=== PATIENT | female | born 1975 | race Caucasian/White ===

== ENCOUNTER 2017-02-24 20:40 | Emergency (ER) | payer MEDICARE, MEDICAID ==
[2017-02-24] MEDS ORDERED: 0.9 % SODIUM CHLORIDE 1,000 ML BAG IV ONE (20:45)
--- NOTE | 2017-02-24 20:50 | Emergency Department Record ---
History of Present Illness - General Chief Complaint: Abdominal Pain Stated Complaint: ABD PAIN Source: Patient Mode of Arrival: Ambulatory Limitations: No limitations - History of Present Illness Initial Comments: 41 yo female presents with abdominal pain. She has a extensive history of abdominal surgery with over 17 surgeries after a remote history of ruptured appendicitis. She has a history of colostomy. She does have pain on a daily basis. She developed sharp severe pain about 2-3 hours ago. She had some nausea and vomiting earlier. She states the output from her ostomy is normal currently. She was seen at [facility] last week. She has a situation that is very difficult due to the numerous surgeries, hernias, morbid obesity MD Complaint: Abdominal pain -: Hour(s) Location: LLQ Radiation: LLQ Migration to: LLQ Severity: Severe Quality: Aching, Sharp Consistency: Constant Improves With: Nothing Associated Symptoms: Anorexia - Related Data Home Medications Medication Instructions Recorded Confirmed Last Taken Alprazolam [Xanax] 0.5 mg PO BID PRN 07/28/16 10/19/16 1 Day Ago Cyclobenzaprine HCl [Flexeril] 10 mg PO QHS 07/28/16 10/19/16 1 Day Ago Docusate Sodium [Colace] 100 mg PO DAILY 07/28/16 10/19/16 1 Day Ago Fentanyl [Duragesic] 100 mcg TD Q72H 07/28/16 10/19/16 07/26/16 Hydrocodone/Acetaminophen [[place] 2 tab PO Q6H 07/28/16 10/19/16 1 Day Ago 7.5mg/325mg] Insulin Detemir [Levemir] 100 unit SQ BID 07/28/16 10/19/16 1 Day Ago Insulin Lispro [Humalog] 1 unit SQ ASDIR 07/28/16 10/19/16 1 Day Ago Trazodone HCl 300 mg PO QHS 07/28/16 10/19/16 1 Day Ago Hydromorphone HCl [Dilaudid] 1 tab PO Q6HR 07/29/16 10/19/16 07/27/16 Lisinopril 20 mg PO DAILY 07/29/16 10/19/16 07/27/16 Metoclopramide HCl [Reglan] 10 mg PO QID 07/29/16 10/19/16 07/27/16 Allergies Allergy/AdvReac Type Severity Reaction Status Date / Time ketorolac tromethamine Allergy VOMITING Verified 07/28/16 16:24 [From Toradol] tramadol Allergy VOMITING Verified 07/28/16 16:24 oral conrast Allergy DIFFICULTY Uncoded 07/28/16 16:24 BREATHING Review of Systems Constitutional: Denies: Chills, Fever, Malaise, Weakness Eyes: Denies: Eye discharge, Eye pain, Photophobia, Vision change ENT: Denies: Congestion, Throat pain Respiratory: Denies: Cough, Dyspnea, Hemoptysis, Stridor, Wheezes Cardiovascular: Denies: Chest pain, Palpitations, Syncope Endocrine: Denies: Fatigue Gastrointestinal: Reports: Abdominal pain, Nausea, Vomiting Genitourinary: Denies: Dysuria, Urgency Musculoskeletal: Denies: Arthralgia, Back pain, Joint swelling, Myalgia Skin: Denies: Bruising, Change in color Neurological: Denies: Confusion, Headache Psychiatric: Denies: Anxiety Hematological/Lymphatic: Denies: Blood Clots, Easy bleeding, Easy bruising, Swollen glands Past Medical History - SOCIAL HISTORY Smoking Status: Former smoker Drug Use: None - RESPIRATORY Hx Respiratory Disorders: No Hx Sleep Apnea: Yes Hx of CPAP: Yes Comment:: CPAP here - CARDIOVASCULAR Hx Cardio Disorders: No Hx Hypertension: Yes - NEURO Hx Neuro Disorders: No - GI Hx Abdominal Pain: Yes Hx Irritable Bowel: Yes Comment:: many surgeries related to septic appy - Hx Genitourinary Disorders: No - ENDOCRINE Hx Endocrine Disorders: Yes Hx Diabetes: Yes Hx Thyroid Disease: No - MUSCULOSKELETAL Hx Musculoskeletal Disorders: No - PSYCH Hx Psych Problems: No - HEMATOLOGY/ONCOLOGY Hx Hematology/Oncology Disorders: No Hx Cancer: Yes (uterine) Hx Chemotherapy: No Hx Radiation Therapy: No Physical Exam - General General Appearance: Alert, Oriented x3, Cooperative, No acute distress Limitations: No limitations - Head Head exam: Atraumatic, Normal inspection - Eye Eye exam: Normal appearance, PERRL. negative: Conjunctival injection, Periorbital swelling - ENT ENT exam: Normal exam, Mucous membranes moist Ear exam: Normal external inspection Nasal Exam: Normal inspection Mouth exam: Normal external inspection Teeth exam: Normal inspection Throat exam: Normal inspection - Neck Neck exam: Normal inspection, Full ROM. negative: Tenderness - Respiratory Respiratory exam: Normal lung sounds bilaterally. negative: Respiratory distress - Cardiovascular Cardiovascular Exam: Regular rate, Normal rhythm, Normal heart sounds - GI/Abdominal GI/Abdominal exam: Distended (morbidly obese abdomen, grossly deformed by chronic hernias and ostomy, tender around the ostomy area mildly firm ), Guarding, Tenderness - Rectal Rectal exam: Deferred - exam: Deferred - Extremities Extremities exam: Normal inspection, Full ROM, Normal capillary refill. negative: Tenderness - Back Back exam: Reports: Normal inspection, Full ROM. Denies: Muscle spasm, Rash noted, Tenderness - Neurological Neurological exam: Alert, Normal gait, Oriented X3 - Psychiatric Psychiatric exam: Normal affect, Normal mood - Skin Skin exam: Dry, Intact, Normal color, Warm Course - Reevaluation(s) Reevaluation #1: EMR reviewed. Prior CT scans demonstrate SBO 02/24/17 20:48 Reevaluation #2: The labs were reviewed Lacitic acid is 3.2 glucose 447 02/24/17 21:35 Reevaluation #3: [place] [facility] [facility] evaluation given her higher risk and elevated lactic acid 02/24/17 21:40 02/24/17 23:05 Medical Decision Making - Lab Data Result diagrams: 02/24/17 20:54 02/24/17 20:54 Disposition Disposition: Transfer Clinical Impression: Elevated lactic acid level Abdominal pain Qualifiers: Abdominal location: unspecified location Qualified Code(s): R10.9 - Unspecified abdominal pain Disposition: Acute Care Hospital [place] [facility] For Transfer: Abdominal pain, SBO Accepting Physician: Devan Time Discussed w/Accepting Physician: 21:44 Condition: (2) Stable Forms: Patient Portal Access Time of Disposition: 21:44
[2017-02-24 21:01] LABS: BASO % 0.3 % (0-6); EOS % 3.4 % (0-6); GRAN % 61.1 % (47-80); HEMOGLOBIN 12.6 gm/dl (11.6-16.0); LYMPH % 29.5 % (16-45); MEAN CELL VOLUME 79.5 fl (81-97); MEAN CORPUSCULAR HGB CONC 31.5 g/dl (32-36); MEAN PLATELET VOLUME 10.6 fl (7.4-10.4); MONO % 5.7 % (0-9); PLATELET COUNT 298 K/uL (130-400); RED BLOOD COUNT 5.03 M/uL (3.80-5.40); RED CELL DISTRIBUTION WIDTH 15.5 % (11.5-14.5)
[2017-02-24] MEDS ORDERED: HYDROMORPHONE HCL 1 MG/ML CPJ IVP ONE ×2 (21:05→21:34)
[2017-02-24 21:11] LABS: INR 0.88; LACTIC ACID 3.2 mmol/L (0.7-2.1); PARTIAL THROMBOPLASTIN TIME 24.3 SECONDS (24.5-39.1)
[2017-02-24 21:13] LABS: ALB/GLOB RATIO 1.2 (1.1-1.8); ALBUMIN 3.7 gm/dL (3.5-5.0); BLOOD UREA NITROGEN 12 mg/dL (7-17); CREATININE 0.6 mg/dL (0.52-1.04); EST GLOMERULAR FILTRATION RATE > 60 ml/min; GLUCOSE,RANDOM 447 mg/dL (70-110); LIPASE 115 U/L (23-300); TOTAL PROTEIN 6.9 gm/dL (6.3-8.2)
[2017-02-24 21:14] LABS: ALKALINE PHOSPHATASE 132 U/L (38-126); ALT/SGPT 29 U/L (9-52); AST/SGOT 23 U/L (14-36)
[2017-02-24 21:14] LABS: URINE APPEARANCE CLEAR; URINE BILIRUBIN NEGATIVE (NEGATIVE); URINE BLOOD NEGATIVE (NEGATIVE); URINE COLOR YELLOW; URINE GLUCOSE (UA) >=1000 mg/dL (NEGATIVE); URINE KETONE NEGATIVE (NEGATIVE); URINE LEUKOCYTE ESTERASE NEGATIVE (NEGATIVE); URINE NITRITE NEGATIVE (NEGATIVE); URINE PROTEIN NEGATIVE (NEGATIVE); URINE UROBILINOGEN 0.2 E.U./dL (0.20 - 1.00)
[2017-02-24] MEDS ORDERED: HUMULIN R 100 UNIT/ML VIAL SQ ONE (22:08)
== END 2017-02-24 22:24 | disposition short-term general hospital (02) ==
LOC: ER 20:40
DX: R74.0 Nonspecific elevation of levels of transaminase and lactic acid dehydrogenase [LDH] (principal); R10.32 Left lower quadrant pain; R11.2 Nausea with vomiting, unspecified; E11.9 Type 2 diabetes mellitus without complications; Z79.4 Long term (current) use of insulin; I10 Essential (primary) hypertension
CPT/HCPCS: 99285 ×2; 96374; 96372; 96361; 83605; 83690; 85025; 85730; 85610; 80053; 81003; J1170; J7030

== ENCOUNTER 2017-04-14 21:20 | Emergency (ER) | payer MEDICARE, MEDICAID ==
[2017-04-14] MEDS ORDERED: MORPHINE SULFATE 5 MG/ML PFS IVP ONE (22:08)
[2017-04-14] MEDS ORDERED: ONDANSETRON HCL IV 4 MG/2 ML VIAL IVP ONE (22:08)
[2017-04-14] MEDS ORDERED: METHYLPREDNISOLONE PF 125MG/VIAL IVP ONE (22:09)
[2017-04-14] MEDS ORDERED: DIPHENHYDRAMINE HCL IV 50 MG/ML VIAL IVP ONE (22:09)
[2017-04-14 22:12] LABS: BASO % 0.2 % (0-6); EOS % 1.4 % (0-6); GRAN % 74.9 % (47-80); HEMATOCRIT 40.5 % (35.0-47.0); LYMPH % 18.7 % (16-45); MEAN CORPUSCULAR HEMOGLOBIN 25.7 pg (27-33); MEAN CORPUSCULAR HGB CONC 32.1 g/dl (32-36); MEAN PLATELET VOLUME 10.6 fl (7.4-10.4); MONO % 4.8 % (0-9); PLATELET COUNT 362 K/uL (130-400); RED BLOOD COUNT 5.06 M/uL (3.80-5.40); RED CELL DISTRIBUTION WIDTH 14.8 % (11.5-14.5); WHITE BLOOD COUNT W/O DIFF 9.3 K/uL (4.2-12.2)
--- NOTE | 2017-04-14 22:14 | Emergency Department Record ---
History of Present Illness - General Chief Complaint: Abdominal Pain Stated Complaint: R ABD PAIN Time Seen by Provider: 04/14/17 22:02 Source: Patient Mode of Arrival: Ambulatory Limitations: No limitations - History of Present Illness Initial Comments: 42 yo female presents to ED with a CC of RLQ pain symptoms toat began 2-3 hours prior to arrival. Patient reports a significant history for perforated appendicitis s/p bowel resection and ostomy, s/p moo and hysterectomy, and previous history of numerous bowel obstructions and hernia repairs. Patient denies fevers, chills, nausea, or vomiting symptoms. Patient reports that she has had output from her ostomy tonight following the onset of her pain symptoms. MD Complaint: Abdominal pain Onset/Timin -: Days(s) Location: RLQ Migration to: No migration Severity: Severe Consistency: Constant Improves With: Nothing Worsens With: Movement Treatments Prior to Arrival: Prescription analgesics - Related Data Patient : No Home Medications Medication Instructions Recorded Confirmed Last Taken Alprazolam [Xanax] 0.5 mg PO BID PRN 07/28/16 04/14/17 04/14/17 Cyclobenzaprine HCl [Flexeril] 10 mg PO QHS 07/28/16 04/14/17 04/13/17 Docusate Sodium [Colace] 100 mg PO DAILY 07/28/16 04/14/17 04/14/17 Hydrocodone/Acetaminophen [[place] 2 tab PO Q6H 07/28/16 04/14/17 04/14/17 7.5mg/325mg] Insulin Detemir [Levemir] 100 unit SQ BID 07/28/16 04/14/17 04/14/17 Insulin Lispro [Humalog] 1 unit SQ ASDIR 07/28/16 04/14/17 04/14/17 Trazodone HCl 300 mg PO QHS 07/28/16 04/14/17 04/13/17 Hydromorphone HCl [Dilaudid] 1 tab PO Q6HR 07/29/16 04/14/17 04/14/17 Lisinopril 20 mg PO DAILY 07/29/16 04/14/17 04/14/17 Metoclopramide HCl [Reglan] 10 mg PO QID 09/26/16 06/12/17 06/12/17 Allergies Allergy/AdvReac Type Severity Reaction Status Date / Time Iodinated Contrast- Oral and Allergy DIFFICULTY Verified 04/14/17 22:28 IV Dye BREATHING ketorolac tromethamine Allergy VOMITING Verified 07/28/16 16:24 [From Toradol] tramadol Allergy VOMITING Verified 07/28/16 16:24 oral conrast Allergy DIFFICULTY Uncoded 07/28/16 16:24 BREATHING Travel Screening - Travel/Exposure Within Last 30 Days Have you traveled within the last 30 days?: No - Travel Symptoms Symptom Screening: None Review of Systems Constitutional: Denies: Chills, Fever, Malaise, Night sweats Eyes: Denies: Eye discharge, Eye pain ENT: Denies: Congestion, Ear pain, Epistaxis Respiratory: Denies: Cough Cardiovascular: Denies: Chest pain, Dyspnea on exertion Endocrine: Denies: Fatigue, Heat or cold intolerance Gastrointestinal: Reports: Abdominal pain. Denies: Constipation, Nausea, Vomiting Genitourinary: Denies: Incontinence, Retention Musculoskeletal: Denies: Arthralgia, Back pain Skin: Denies: Bruising, Change in color Neurological: Denies: Abnormal gait, Confusion, Headache, Seizure Psychiatric: Denies: Anxiety Hematological/Lymphatic: Denies: Anemia, Blood Clots Past Medical History - SOCIAL HISTORY Smoking Status: Former smoker Alcohol Use: None Drug Use: None - RESPIRATORY Hx Respiratory Disorders: No Hx Sleep Apnea: Yes Hx of CPAP: Yes Comment:: CPAP here - CARDIOVASCULAR Hx Cardio Disorders: No Hx Hypertension: Yes - NEURO Hx Neuro Disorders: No - GI Hx GI Disorders: Yes Hx Abdominal Pain: Yes Hx Irritable Bowel: Yes Comment:: many surgeries related to septic appy - Hx Genitourinary Disorders: No - ENDOCRINE Hx Endocrine Disorders: Yes Hx Diabetes: Yes Hx Thyroid Disease: No - MUSCULOSKELETAL Hx Musculoskeletal Disorders: No - PSYCH Hx Psych Problems: No - HEMATOLOGY/ONCOLOGY Hx Hematology/Oncology Disorders: No Hx Cancer: Yes (uterine) Hx Chemotherapy: No Hx Radiation Therapy: No Family Medical History Any Significant Family History?: No Family Hx Comment (NOT TO BE USED IN PLACE OF ITEMS BELOW): denies Physical Exam - General General Appearance: Alert, Oriented x3, Cooperative, Moderate distress Limitations: No limitations - Head Head exam: Atraumatic, Normocephalic, Normal inspection Head exam detail: negative: Abrasion, Contusion, Junior's sign, General tenderness, Hematoma, Laceration - Eye Eye exam: Normal appearance. negative: Conjunctival injection, Periorbital swelling, Periorbital tenderness, Scleral icterus - ENT Ear exam: negative: Auricular hematoma, Auricular trauma Nasal Exam: negative: Active bleeding, Discharge, Dried blood, Foreign body Mouth exam: negative: Drooling, Laceration, Muffled voice, Tongue elevation - Neck Neck exam: Normal inspection. negative: Meningismus, Tenderness - Respiratory Respiratory exam: Normal lung sounds bilaterally. negative: Rales, Respiratory distress, Rhonchi, Stridor - Cardiovascular Cardiovascular Exam: Regular rate, Normal rhythm, Normal heart sounds - GI/Abdominal GI/Abdominal exam: Soft, Tenderness, Other (TTP to the right mid-abdomen, no rebound, guarding is present, well healed midline scar is present, ostomy LLQ is present with mild output.). negative: Rebound, Rigid - Rectal Rectal exam: Deferred - exam: Deferred - Extremities Extremities exam: Normal inspection. negative: Calf tenderness, Pedal edema, Tenderness - Back Back exam: Denies: CVA tenderness (R), CVA tenderness (L) - Neurological Neurological exam: Alert, Normal gait, Oriented X3 - Psychiatric Psychiatric exam: Normal affect, Normal mood - Skin Skin exam: Normal color. negative: Abrasion Type of lesion: negative: abrasion Course Vital Signs 04/14/17 21:29 Temperature 98.6 F Pulse Rate [ 92 H Pulse Ox Probe] Respiratory 18 Rate Blood Pressure 189/95 [Left Arm] Pulse Ox 96 - Reevaluation(s) Reevaluation #1: 04/14/17 22:13 Patient seen and examined, laboratory studies and CT imaging ordered for further abdominal evaluation. Reevaluation #2: 04/14/17 22:39 Labs reviewed, Glucose is 385, labs are otherwise grossly unremarkable for an acute process. Reevaluation #3: 04/15/17 00:00 CT Abdomen and Pelvis: Ventral wall hernia opening measuring 5.8 cm with bowel extending into the lower abdominal pannus extending below the [id number]. No obstruction. Hepatosplenomegaly Nonobstructive renal calculi Hypoattenuating spenic lesion. Reevaluation #4: 04/15/17 00:05 patient was updated on all results, reports that she still has ongoing pain symptoms. Will discuss transfer with Dr. Rodriguez for ongoing pain symptoms. Reevaluation #5: 04/15/17 00:22 Case was discussed with both Dr. Gardiner and Dr. Rodriguez, Dr. Gardiner will accept the patient for transfer and observation. Patient has been updated on the plan for transfer and admission as observation stay. Patient verbalizes understanding of the current plan of care. Medical Decision Making - Lab Data Result diagrams: 04/14/17 21:40 04/14/17 21:40 Disposition Disposition: Transfer Clinical Impression: Abdominal pain Qualifiers: Abdominal location: right lower quadrant Qualified Code(s): R10.31 - Right lower quadrant pain Disposition: Acute Care Hospital Transfer Transfer To: [facility] Reason For Transfer: Surgical consultation Accepting Physician: Abdifatah Time Discussed w/Accepting Physician: 00:23 Condition: (2) Stable Forms: Patient Portal Access Time of Disposition: 00:07
[2017-04-14] MEDS ORDERED: 0.9 % SODIUM CHLORIDE 1000ML 1,000 ML IV SCH (22:15)
[2017-04-14 22:23] LABS: ALB/GLOB RATIO 0.9 (1.1-1.8); ALKALINE PHOSPHATASE 125 U/L (38-126); ALT/SGPT 22 U/L (9-52); ANION GAP 10.4 (7-16); AST/SGOT 19 U/L (14-36); BILIRUBIN,TOTAL 0.43 mg/dL (0.2-1.3); BLOOD UREA NITROGEN 10 mg/dL (7-17); CARBON DIOXIDE 24.6 mmol/L (22-30); CREATININE 0.5 mg/dL (0.52-1.04); EST GLOMERULAR FILTRATION RATE > 60 ml/min; GLUCOSE,RANDOM 385 mg/dL (70-110); LIPASE 81 U/L (23-300); TOTAL PROTEIN 8.3 gm/dL (6.3-8.2)
[2017-04-14 23:12] LABS: URINE APPEARANCE CLEAR; URINE BILIRUBIN NEGATIVE (NEGATIVE); URINE BLOOD NEGATIVE (NEGATIVE); URINE COLOR YELLOW; URINE KETONE NEGATIVE (NEGATIVE); URINE LEUKOCYTE ESTERASE NEGATIVE (NEGATIVE); URINE NITRITE NEGATIVE (NEGATIVE); URINE UROBILINOGEN 0.2 E.U./dL (0.20 - 1.00)
[2017-04-14 23:13] LABS: URINE GLUCOSE (UA) >=1000 mg/dL (NEGATIVE)
[2017-04-14] MEDS ORDERED: HYDROMORPHONE HCL 1 MG/ML CPJ IVP ONE (23:33)
[2017-04-15] MEDS ORDERED: HYDROMORPHONE HCL 1 MG/ML CPJ IVP ONE ×2 (00:59→03:38)
--- NOTE | 2017-04-16 08:32 | CT SCAN REPORT ---
EXAM: ABDOMEN AND PELVIS CT WITH IV CONTRAST HISTORY: ACUTE RIGHT LOWER QUADRANT ABDOMINAL PAIN. TECHNIQUE: Contiguous axial images from the lung bases to the symphysis pubis were obtained after the uneventful intravenous administration of 100 ml of Omnipaque 300. Comparison: Abdomen and pelvis CT 07/28/16. FINDINGS: The lung bases are clear. Decreased attenuation throughout the liver consistent with fatty infiltration. There is a lobulated hypodense focus in the medial aspect of the spleen measuring 3.4 cm, unchanged from the previous study from 07/28/16. Nonobstructing 2 mm calculus mid left kidney. Normal right kidney. The adrenals and pancreas are unremarkable. The gallbladder is absent. There is a ventral abdominal wall hernia containing a loop of colon extending into pannus which extends off the field of view. There may be a separate spigelian hernia on the left containing bowel although this is not imaged. Abdominal wall laxity diffusely. Visualized loops of small and large bowel are of normal caliber. No obvious bowel wall thickening. Small to moderate fecal material throughout the colon. No free intraperitoneal fluid or adenopathy. There is a unilocular cyst in the left adnexa measuring 5.6 cm, unchanged. No free intraperitoneal fluid or adenopathy. No lytic or blastic lesion. IMPRESSION: 1. LAXITY OF THE VENTRAL ABDOMINAL WALL WITH VENTRAL ABDOMINAL WALL HERNIA CONTAINING A LOOP OF COLON. ALSO SPIGELIAN HERNIA ON THE LEFT CONTAINING BOWEL WHICH EXTENDS OUTSIDE THE FIELD OF VIEW. NO INTESTINAL OBSTRUCTION. 2. FATTY LIVER. 3. STABLE LOBULATED HYPODENSITY IN THE SPLEEN LIKELY DUE TO BENIGN HEMANGIOMA. 4. NONOBSTRUCTING LEFT RENAL CALCULUS. 5. PERSISTENT 5.6 CM CYST IN THE LEFT OVARY SIMILAR TO THE PRIOR STUDY. RESECTION SHOULD BE CONSIDERED GIVEN THE SIZE OF THE LESION INCREASING THE RISK OF MALIGNANCY WELL OVARIAN TORSION. 6. FATTY LIVER. JOB NUMBER: [id number] [facility]
== END 2017-04-15 03:55 | disposition short-term general hospital (02) ==
LOC: ER 21:20
DX: R10.31 Right lower quadrant pain (principal); K43.9 Ventral hernia without obstruction or gangrene
CPT/HCPCS: 74177; 80053; 81003; 83690; 85025; 96374; 96375; 96376; 99285; J1170; J1200; J2405; J2930; J7030

== ENCOUNTER 2017-05-11 03:19 | Emergency (ER) | payer MEDICARE, MEDICAID ==
[2017-05-11] MEDS: 0.9 % SODIUM CHLORIDE 1,000 ML BAG IV ONE (03:54)
[2017-05-11] MEDS: HYDROMORPHONE HCL 1 MG/ML CPJ IVP ONE ×2 (03:54→05:39)
[2017-05-11] MEDS: ONDANSETRON HCL IV 4 MG/2 ML VIAL IV ONE (03:54)
[2017-05-11 03:57] LABS: BASO % 0.4 % (0-6); EOS % 3.6 % (0-6); GRAN % 61.9 % (47-80); HEMATOCRIT 39.1 % (35.0-47.0); LYMPH % 26.9 % (16-45); MEAN CELL VOLUME 80.6 fl (81-97); MEAN CORPUSCULAR HEMOGLOBIN 26.8 pg (27-33); MEAN CORPUSCULAR HGB CONC 33.2 g/dl (32-36); MEAN PLATELET VOLUME 10.5 fl (7.4-10.4); MONO % 7.2 % (0-9); PLATELET COUNT 347 K/uL (130-400); RED BLOOD COUNT 4.85 M/uL (3.80-5.40); RED CELL DISTRIBUTION WIDTH 14.8 % (11.5-14.5); WHITE BLOOD COUNT W/O DIFF 8.2 K/uL (4.2-12.2)
[2017-05-11 04:06] LABS: ALBUMIN 3.9 gm/dL (3.5-5.0); ANION GAP 10.1 (7-16); BLOOD UREA NITROGEN 10 mg/dL (7-17); CARBON DIOXIDE 27.9 mmol/L (22-30); CREATININE 0.5 mg/dL (0.52-1.04); EST GLOMERULAR FILTRATION RATE > 60 ml/min; GLUCOSE,RANDOM 281 mg/dL (70-110); TOTAL PROTEIN 7.5 gm/dL (6.3-8.2)
[2017-05-11 04:07] LABS: ALKALINE PHOSPHATASE 134 U/L (38-126); ALT/SGPT 27 U/L (9-52); AST/SGOT 24 U/L (14-36); BILIRUBIN,TOTAL 0.75 mg/dL (0.2-1.3); LIPASE 99 U/L (23-300)
--- NOTE | 2017-05-11 04:16 | Emergency Department Record ---
History of Present Illness - General Chief Complaint: Abdominal Pain Stated Complaint: ABD PAIN Time Seen by Provider: 05/11/17 03:43 Source: Patient Mode of Arrival: Ambulatory Limitations: No limitations - History of Present Illness Initial Comments: pt here for abd pain and decreased outbut from colostomy. pt has had more then 15 abd surgeries since a perforated appendix many years ago. she now goes to [facility]. she has multiple sbo. she has vomited twice today. MD Complaint: Abdominal pain Onset/Timin -: Hour(s) Location: LLQ Radiation: None Migration to: No migration Severity: Moderate Quality: Burning Consistency: Constant Improves With: Nothing Worsens With: Nothing Associated Symptoms: Denies other symptoms - Related Data LMP (females 10-50): other Patient : No Home Medications Medication Instructions Recorded Confirmed Last Taken Alprazolam [Xanax] 0.5 mg PO BID PRN 07/28/16 05/11/17 04/14/17 Cyclobenzaprine HCl [Flexeril] 10 mg PO QHS 07/28/16 05/11/17 04/13/17 Docusate Sodium [Colace] 100 mg PO DAILY 07/28/16 05/11/17 04/14/17 Hydrocodone/Acetaminophen [[place] 2 tab PO Q6H 07/28/16 05/11/17 04/14/17 7.5mg/325mg] Insulin Detemir [Levemir] 100 unit SQ BID 07/28/16 05/11/17 04/14/17 Insulin Lispro [Humalog] 1 unit SQ ASDIR 07/28/16 05/11/17 04/14/17 Trazodone HCl 300 mg PO QHS 07/28/16 05/11/17 04/13/17 Hydromorphone HCl [Dilaudid] 1 tab PO Q6HR 07/29/16 05/11/17 04/14/17 Lisinopril 20 mg PO DAILY 07/29/16 05/11/17 04/14/17 Metoclopramide HCl [Reglan] 10 mg PO QID 07/29/16 05/11/17 04/14/17 Allergies Allergy/AdvReac Type Severity Reaction Status Date / Time Iodinated Contrast- Oral and Allergy DIFFICULTY Verified 04/14/17 22:28 IV Dye BREATHING ketorolac tromethamine Allergy VOMITING Verified 07/28/16 16:24 [From Toradol] tramadol Allergy VOMITING Verified 07/28/16 16:24 oral conrast Allergy DIFFICULTY Uncoded 07/28/16 16:24 BREATHING Travel Screening - Travel/Exposure Within Last 30 Days Have you traveled within the last 30 days?: No - Travel/Exposure Within Last Year Have you traveled outside the [place] in the last year?: No - Additonal Travel Details Have you been exposed to anyone with a communicable illness?: No - Travel Symptoms Symptom Screening: None Review of Systems Reviewed: No additional complaints except as noted below Constitutional: Reports: As per HPI. Denies: Chills, Fever, Malaise, Night sweats, Weakness, Weight change Eyes: Reports: As per HPI. Denies: Eye discharge, Eye pain, Photophobia, Vision change ENT: Reports: As per HPI. Denies: Congestion, Dental pain, Ear pain, Epistaxis , Hearing loss, Throat pain Respiratory: Reports: As per HPI. Denies: Cough, Dyspnea, Hemoptysis, Stridor, Wheezes Cardiovascular: Reports: As per HPI. Denies: Arrhythmia, Chest pain, Dyspnea on exertion, Edema, Murmurs, Orthopnea, Palpitations, Paroxysmal nocturnal dyspnea, Rheumatic Fever, Syncope Endocrine: Reports: As per HPI. Denies: Fatigue, Heat or cold intolerance, Polydipsia, Polyuria Gastrointestinal: Reports: As per HPI. Denies: Abdominal pain, Constipation, Diarrhea, Hematemesis, Hematochezia, Melena, Nausea, Vomiting Genitourinary: Reports: As per HPI. Denies: Abnormal menses, Discharge, Dyspareunia, Dysuria, Frequency, Hematuria, Incontinence, Retention, Urgency Musculoskeletal: Reports: As per HPI. Denies: Arthralgia, Back pain, Gout, Joint swelling, Myalgia, Neck pain Skin: Reports: As per HPI. Denies: Bruising, Change in color, Change in hair/ nails, Lesions, Pruritus, Rash Neurological: Reports: As per HPI. Denies: Abnormal gait, Confusion, Headache, Numbness, Paresthesias, Seizure, Tingling, Tremors, Vertigo, Weakness Psychiatric: Reports: As per HPI. Denies: Anxiety, Auditory hallucinations, Depression, Homicidal thoughts, Suicidal thoughts, Visual hallucinations Hematological/Lymphatic: Reports: As per HPI. Denies: Anemia, Blood Clots, Easy bleeding, Easy bruising, Swollen glands Past Medical History - SOCIAL HISTORY Smoking Status: Former smoker Alcohol Use: None Drug Use: None - RESPIRATORY Hx Respiratory Disorders: No Hx Sleep Apnea: Yes Hx of CPAP: Yes Comment:: CPAP here - CARDIOVASCULAR Hx Cardio Disorders: No Hx Hypertension: Yes - NEURO Hx Neuro Disorders: No - GI Hx GI Disorders: Yes Hx Abdominal Pain: Yes Hx Irritable Bowel: Yes Comment:: many surgeries related to septic appy - Hx Genitourinary Disorders: No - ENDOCRINE Hx Endocrine Disorders: Yes Hx Diabetes: Yes Hx Thyroid Disease: No - MUSCULOSKELETAL Hx Musculoskeletal Disorders: No - PSYCH Hx Psych Problems: No - HEMATOLOGY/ONCOLOGY Hx Hematology/Oncology Disorders: No Hx Cancer: Yes (uterine) Hx Chemotherapy: No Hx Radiation Therapy: No Family Medical History Any Significant Family History?: No Family Hx Comment (NOT TO BE USED IN PLACE OF ITEMS BELOW): denies Physical Exam - General General Appearance: Alert, Oriented x3, Cooperative, Mild distress - Head Head exam: Normal inspection - Eye Eye exam: Normal appearance, PERRL, EOMI Pupils: Normal accommodation - ENT ENT exam: Normal exam, Mucous membranes moist, Normal external ear exam, Normal orophraynx Ear exam: Normal external inspection. negative: External canal tenderness Nasal Exam: Normal inspection. negative: Discharge, Sinus tenderness Mouth exam: Normal external inspection, Tongue normal Teeth exam: Normal inspection. negative: Dental caries Throat exam: Normal inspection. negative: Tonsillar erythema, Tonsillar exudate - Neck Neck exam: Normal inspection, Full ROM. negative: Tenderness - Respiratory Respiratory exam: Normal lung sounds bilaterally. negative: Respiratory distress - Cardiovascular Cardiovascular Exam: Regular rate, Normal rhythm, Normal heart sounds - GI/Abdominal GI/Abdominal exam: Soft, Normal bowel sounds, Hernia, Tenderness, Other ( colostomy in place w small outflow, ) - Rectal Rectal exam: Deferred - exam: Deferred - Extremities Extremities exam: Normal inspection, Full ROM, Normal capillary refill. negative: Tenderness - Back Back exam: Reports: Normal inspection, Full ROM. Denies: Muscle spasm, Rash noted, Tenderness - Neurological Neurological exam: Alert, CN II-XII intact, Normal gait, Oriented X3 - Psychiatric Psychiatric exam: Normal affect, Normal mood - Skin Skin exam: Dry, Intact, Normal color, Warm Course Vital Signs 05/11/17 05/11/17 03:32 04:04 Temperature 98.6 F Pulse Rate [ 84 Pulse Ox Probe] Respiratory 20 Rate Blood Pressure 194/91 [Right Arm] Pulse Ox 97 94 L - Reevaluation(s) Reevaluation #1: 05/11/17 05:34 ct no acute chgs, no obstruction Medical Decision Making - Lab Data Result diagrams: 05/11/17 03:35 05/11/17 03:35 Lab Results 05/11/17 Range/Units 03:35 WBC 8.2 (4.2-12.2) K/uL RBC 4.85 (3.80-5.40) M/uL Hgb 13.0 (11.6-16.0) gm/dl Hct 39.1 (35.0-47.0) % MCV 80.6 L (81-97) fl MCH 26.8 L (27-33) pg MCHC 33.2 (32-36) g/dl RDW 14.8 H (11.5-14.5) % Plt Count 347 (130-400) K/uL MPV 10.5 H (7.4-10.4) fl Gran % 61.9 (47-80) % Lymphocytes % 26.9 (16-45) % Monocytes % 7.2 (0-9) % Eosinophils % 3.6 (0-6) % Basophils % 0.4 (0-6) % Disposition Disposition: Discharge Clinical Impression: Abdominal pain Qualifiers: Abdominal location: generalized Qualified Code(s): R10.84 - Generalized abdominal pain Disposition: Home, Self-Care Condition: (1) Good Instructions: Abdominal Pain (ED) Additional Instructions: follow up with family doctor and surgeon tomorrow. return sooner if worse. recheck in 12-24 hours if having abd pain Forms: Patient Portal Access Quality - Quality Measures Quality Measures: N/A - Blood Pressure Screening Blood Pressure Classification: Hypertensive Reading Systolic Measurement: 179 Diastolic Measurement: 64 Screening for High Blood Pressure: < First Hypertensive BP, F/U Documented > [ [id number]] First Hypertensive Follow-up Interventions: Follow-up with rescreen GT 1 day and LT 4 weeks.
[2017-05-11 04:44] LABS: URINE APPEARANCE CLEAR; URINE BILIRUBIN NEGATIVE (NEGATIVE); URINE BLOOD NEGATIVE (NEGATIVE); URINE COLOR YELLOW; URINE KETONE NEGATIVE (NEGATIVE); URINE LEUKOCYTE ESTERASE NEGATIVE (NEGATIVE); URINE NITRITE NEGATIVE (NEGATIVE); URINE PROTEIN NEGATIVE (NEGATIVE); URINE UROBILINOGEN 0.2 E.U./dL (0.20 - 1.00)
[2017-05-11 04:48] LABS: URINE GLUCOSE (UA) >=1000 mg/dL (NEGATIVE)
--- NOTE | 2017-05-13 06:00 | CT SCAN REPORT ---
DATE: 05/11/2017. EXAM: CT OF THE ABDOMEN AND PELVIS WITHOUT CONTRAST. HISTORY: Left lower quadrant pain. TECHNIQUE: CT of the abdomen and pelvis was performed without oral or IV contrast. This limits evaluation of bowel and solid visceral organs. COMPARISON: Prior CT from 10/19/2016. FINDINGS: Limited evaluation of the lung bases is unremarkable. Osseous structures are grossly intact. Fatty infiltrative change to the liver is suspected. Status post cholecystectomy. Stable 3.8 x 3.5 cm hypodensity within the spleen. The adrenal glands and pancreas are unremarkable. Nonobstructing 2.0 mm left renal calculus. The kidneys are otherwise unremarkable. Stable cystic mass in the left hemipelvis/left adnexal region measuring 6.8 x 5.7 cm. No gross evidence of bowel obstruction. Limited study due to patient body habitus. Portions of the abdominal wall could not be included on the examination. There is a large hernia involving the lower abdomen/pelvis with loops of bowel extending into the region. No definitive evidence for bowel obstruction. Postsurgical changes with partial bowel resection are noted. No free air or free fluid. The appendix is not well seen. Correlate with surgical history. No pericecal inflammation. IMPRESSION: 1. LIMITED DUE TO PATIENT BODY HABITUS. 2. PORTIONS OF THE ABDOMINAL WALL EXTENDED OFF OF THE FIELD OF VIEW IN THE LEFT LOWER QUADRANT. THERE IS A LARGE HERNIA WITH LOOPS OF BOWEL EXTENDING INTO THE HERNIA SAC. NO CONVINCING EVIDENCE FOR BOWEL OBSTRUCTION. 3. STABLE SPLENIC LESION. STABLE CYSTIC MASS IN THE LEFT LOWER QUADRANT. 4. NONOBSTRUCTING LEFT RENAL CALCULI. JOB NUMBER: [id number] [facility]
== END 2017-05-11 06:07 | disposition home or self-care (01) ==
LOC: ER 03:19
DX: R10.84 Generalized abdominal pain (principal); R10.32 Left lower quadrant pain; Z85.42 Personal history of malignant neoplasm of other parts of uterus; I10 Essential (primary) hypertension; Z87.891 Personal history of nicotine dependence
CPT/HCPCS: 99284 ×2; 96376; 96374; 96375; 96361; 83605; 83690; 85025; 80076; 80048; 81003; 74176; J2405; J1170; J7030

== ENCOUNTER 2017-05-11 15:27 | Emergency (ER) | payer MEDICARE, MEDICAID | END 2017-05-11 16:13 | disposition left against medical advice (07) | LOC: ER 15:27 | DX: Z53.20 Procedure and treatment not carried out because of patient's decision for unspecified reasons (principal) ==

== ENCOUNTER 2017-05-28 21:45 | Emergency (ER) | payer MEDICARE, MEDICAID ==
--- NOTE | 2017-05-28 22:12 | Emergency Department Record ---
History of Present Illness - General Chief Complaint: Fall Injury Stated Complaint: FELL Time Seen by Provider: 05/28/17 21:57 Source: Patient Mode of Arrival: Ambulatory Limitations: No limitations - History of Present Illness Initial Comments: pt became dizzy, held head and found herself on the floor. she hit her l side and it continues to be painful Onset/Timin -: Hour(s) Fall From: From height (distance) When Fall Occurred: Unsure Fall Witnessed: No Place Fall Occurred: Home Loss of Consciousness: None Prolonged Down Time?: No Symptoms Prior to Fall: Dizziness Location: Chest, Abdomen, Other Severity: Moderate Severity scale (1-10): 9 Quality: Other Associated Symptoms: Denies - Stef Coma Scale Eye Response: (4) Open spontaneously Motor Response: (6) Obeys commands Verbal Response: (5) Oriented [place] Total: 15 - Related Data Home Medications Medication Instructions Recorded Confirmed Last Taken Alprazolam [Xanax] 0.5 mg PO BID PRN 07/28/16 05/28/17 04/14/17 Cyclobenzaprine HCl [Flexeril] 10 mg PO QHS 07/28/16 05/28/17 04/13/17 Docusate Sodium [Colace] 100 mg PO DAILY 07/28/16 05/28/17 04/14/17 Hydrocodone/Acetaminophen [[place] 2 tab PO Q6H 07/28/16 05/28/17 04/14/17 7.5mg/325mg] Insulin Detemir [Levemir] 100 unit SQ BID 07/28/16 05/28/17 04/14/17 Insulin Lispro [Humalog] 1 unit SQ ASDIR 07/28/16 05/28/17 04/14/17 Trazodone HCl 300 mg PO QHS 07/28/16 05/28/17 04/13/17 Hydromorphone HCl [Dilaudid] 1 tab PO Q6HR 07/29/16 05/28/17 04/14/17 Lisinopril 20 mg PO DAILY 07/29/16 05/28/17 04/14/17 Metoclopramide HCl [Reglan] 10 mg PO QID 07/29/16 05/28/17 04/14/17 Allergies Allergy/AdvReac Type Severity Reaction Status Date / Time Iodinated Contrast- Oral and Allergy DIFFICULTY Verified 04/14/17 22:28 IV Dye BREATHING ketorolac tromethamine Allergy VOMITING Verified 07/28/16 16:24 [From Toradol] tramadol Allergy VOMITING Verified 07/28/16 16:24 oral conrast Allergy DIFFICULTY Uncoded 07/28/16 16:24 BREATHING Travel Screening - Travel/Exposure Within Last 30 Days Have you traveled within the last 30 days?: No - Travel/Exposure Within Last Year Have you traveled outside the [place] in the last year?: No - Additonal Travel Details Have you been exposed to anyone with a communicable illness?: No - Travel Symptoms Symptom Screening: None Review of Systems Reviewed: No additional complaints except as noted below Constitutional: Reports: As per HPI. Denies: Chills, Fever, Malaise, Night sweats, Weakness, Weight change Eyes: Reports: As per HPI. Denies: Eye discharge, Eye pain, Photophobia, Vision change ENT: Reports: As per HPI. Denies: Congestion, Dental pain, Ear pain, Epistaxis , Hearing loss, Throat pain Respiratory: Reports: As per HPI. Denies: Cough, Dyspnea, Hemoptysis, Stridor, Wheezes Cardiovascular: Reports: As per HPI. Denies: Arrhythmia, Chest pain, Dyspnea on exertion, Edema, Murmurs, Orthopnea, Palpitations, Paroxysmal nocturnal dyspnea, Rheumatic Fever, Syncope Endocrine: Reports: As per HPI. Denies: Fatigue, Heat or cold intolerance, Polydipsia, Polyuria Gastrointestinal: Reports: As per HPI. Denies: Abdominal pain, Constipation, Diarrhea, Hematemesis, Hematochezia, Melena, Nausea, Vomiting Genitourinary: Reports: As per HPI. Denies: Abnormal menses, Discharge, Dyspareunia, Dysuria, Frequency, Hematuria, Incontinence, Retention, Urgency Musculoskeletal: Reports: As per HPI. Denies: Arthralgia, Back pain, Gout, Joint swelling, Myalgia, Neck pain Skin: Reports: As per HPI. Denies: Bruising, Change in color, Change in hair/ nails, Lesions, Pruritus, Rash Neurological: Reports: As per HPI. Denies: Abnormal gait, Confusion, Headache, Numbness, Paresthesias, Seizure, Tingling, Tremors, Vertigo, Weakness Psychiatric: Reports: As per HPI. Denies: Anxiety, Auditory hallucinations, Depression, Homicidal thoughts, Suicidal thoughts, Visual hallucinations Hematological/Lymphatic: Reports: As per HPI. Denies: Anemia, Blood Clots, Easy bleeding, Easy bruising, Swollen glands Past Medical History - SOCIAL HISTORY Smoking Status: Former smoker Alcohol Use: None Drug Use: None - RESPIRATORY Hx Respiratory Disorders: No Hx Sleep Apnea: Yes Hx of CPAP: Yes Comment:: CPAP here - CARDIOVASCULAR Hx Cardio Disorders: No Hx Hypertension: Yes - NEURO Hx Neuro Disorders: No - GI Hx GI Disorders: Yes Hx Abdominal Pain: Yes Hx Irritable Bowel: Yes Comment:: many surgeries related to septic appy - Hx Genitourinary Disorders: No - ENDOCRINE Hx Endocrine Disorders: Yes Hx Diabetes: Yes Hx Thyroid Disease: No - MUSCULOSKELETAL Hx Musculoskeletal Disorders: No - PSYCH Hx Psych Problems: No - HEMATOLOGY/ONCOLOGY Hx Hematology/Oncology Disorders: No Hx Cancer: Yes (uterine) Hx Chemotherapy: No Hx Radiation Therapy: No Family Medical History Any Significant Family History?: No Family Hx Comment (NOT TO BE USED IN PLACE OF ITEMS BELOW): denies Physical Exam - General General Appearance: Alert, Oriented x3, Cooperative, Mild distress - Head Head exam: Normal inspection - Eye Eye exam: Normal appearance, PERRL, EOMI Pupils: Normal accommodation - ENT ENT exam: Normal exam, Mucous membranes moist, Normal external ear exam, Normal orophraynx Ear exam: Normal external inspection. negative: External canal tenderness Nasal Exam: Normal inspection. negative: Discharge, Sinus tenderness Mouth exam: Normal external inspection, Tongue normal Teeth exam: Normal inspection. negative: Dental caries Throat exam: Normal inspection. negative: Tonsillar erythema, Tonsillar exudate - Neck Neck exam: Normal inspection, Full ROM. negative: Tenderness - Respiratory Respiratory exam: Normal lung sounds bilaterally. negative: Respiratory distress - Cardiovascular Cardiovascular Exam: Regular rate, Normal rhythm, Normal heart sounds - GI/Abdominal GI/Abdominal exam: Soft, Normal bowel sounds, Tenderness - Rectal Rectal exam: Deferred - exam: Deferred - Extremities Extremities exam: Normal inspection, Full ROM, Normal capillary refill. negative: Tenderness - Back Back exam: Reports: Normal inspection, Full ROM. Denies: Muscle spasm, Rash noted, Tenderness - Neurological Neurological exam: Alert, CN II-XII intact, Normal gait, Oriented X3 - Psychiatric Psychiatric exam: Normal affect, Normal mood - Skin Skin exam: Dry, Intact, Normal color, Warm Course Vital Signs 07/26/17 21:47 Temperature 98.5 F Pulse Rate 83 Respiratory 20 Rate Blood Pressure 163/92 Pulse Ox 97 Medical Decision Making - Lab Data Result diagrams: 05/28/17 22:45 05/28/17 22:45 Disposition Disposition: Discharge Clinical Impression: Rib contusion Qualifiers: Encounter type: initial encounter Laterality: left Qualified Code(s): S20.212A - Contusion of left front wall of thorax, initial encounter Fall Qualifiers: Encounter type: initial encounter Qualified Code(s): W19.XXXA - Unspecified fall, initial encounter Disposition: Home, Self-Care Condition: (1) Good Instructions: Rib Fracture (ED), Contusion in Adults (ED) Additional Instructions: follow up with family doctor. return sooner if worse. have halter monitor. deep breaths 5 times an hour. Forms: Patient Portal Access Quality - Quality Measures Quality Measures: N/A - Blood Pressure Screening Blood Pressure Classification: Hypertensive Reading Systolic Measurement: 163 Diastolic Measurement: 92 Screening for High Blood Pressure: < First Hypertensive BP, F/U Documented > [ G8950] First Hypertensive Follow-up Interventions: Follow-up with rescreen GT 1 day and LT 4 weeks.
[2017-05-28 22:50] LABS: BASO % 0.3 % (0-6); EOS % 3.1 % (0-6); GRAN % 62.8 % (47-80); HEMATOCRIT 35.5 % (35.0-47.0); HEMOGLOBIN 11.6 gm/dl (11.6-16.0); LYMPH % 26.6 % (16-45); MEAN CELL VOLUME 81.4 fl (81-97); MEAN CORPUSCULAR HEMOGLOBIN 26.6 pg (27-33); MEAN CORPUSCULAR HGB CONC 32.7 g/dl (32-36); MEAN PLATELET VOLUME 10.7 fl (7.4-10.4); MONO % 7.2 % (0-9); PLATELET COUNT 232 K/uL (130-400); RED BLOOD COUNT 4.36 M/uL (3.80-5.40); RED CELL DISTRIBUTION WIDTH 14.3 % (11.5-14.5); WHITE BLOOD COUNT W/O DIFF 8.6 K/uL (4.2-12.2)
[2017-05-28 23:01] LABS: ANION GAP 10.4 (7-16); BLOOD UREA NITROGEN 13 mg/dL (7-17); CARBON DIOXIDE 24.6 mmol/L (22-30); CREATININE 0.6 mg/dL (0.52-1.04); EST GLOMERULAR FILTRATION RATE > 60 ml/min; GLUCOSE,RANDOM 314 mg/dL (70-110)
[2017-05-28] MEDS ORDERED: HYDROMORPHONE HCL 2 MG/ML VIAL IM ONE (23:22)
[2017-05-28] MEDS ORDERED: PROMETHAZINE HCL 25 MG/ML VIAL IM ONE (23:22)
--- NOTE | 2017-05-28 23:49 | Emergency Department Record ---
History of Present Illness - General Chief Complaint: Fall Injury Stated Complaint: FELL Time Seen by Provider: 05/28/17 21:57 Source: Patient Mode of Arrival: Ambulatory - History of Present Illness Onset/Timin -: Hour(s) Fall From: From height (distance) When Fall Occurred: Unsure Fall Witnessed: No Place Fall Occurred: Home Loss of Consciousness: None Prolonged Down Time?: No Symptoms Prior to Fall: Dizziness Location: Chest, Abdomen, Other Severity: Moderate Severity scale (1-10): 9 Quality: Other Associated Symptoms: Denies - Stef Coma Scale Eye Response: (4) Open spontaneously Motor Response: (6) Obeys commands Verbal Response: (5) Oriented [place] Total: 15 - Related Data Home Medications Medication Instructions Recorded Confirmed Last Taken Alprazolam [Xanax] 0.5 mg PO BID PRN 07/28/16 05/28/17 04/14/17 Cyclobenzaprine HCl [Flexeril] 10 mg PO QHS 07/28/16 05/28/17 04/13/17 Docusate Sodium [Colace] 100 mg PO DAILY 07/28/16 05/28/17 04/14/17 Hydrocodone/Acetaminophen [[place] 2 tab PO Q6H 07/28/16 05/28/17 04/14/17 7.5mg/325mg] Insulin Detemir [Levemir] 100 unit SQ BID 07/28/16 05/28/17 04/14/17 Insulin Lispro [Humalog] 1 unit SQ ASDIR 07/28/16 05/28/17 04/14/17 Trazodone HCl 300 mg PO QHS 07/28/16 05/28/17 04/13/17 Hydromorphone HCl [Dilaudid] 1 tab PO Q6HR 07/29/16 05/28/17 04/14/17 Lisinopril 20 mg PO DAILY 07/29/16 05/28/17 04/14/17 Metoclopramide HCl [Reglan] 10 mg PO QID 07/29/16 05/28/17 04/14/17 Allergies Allergy/AdvReac Type Severity Reaction Status Date / Time Iodinated Contrast- Oral and Allergy DIFFICULTY Verified 04/14/17 22:28 IV Dye BREATHING ketorolac tromethamine Allergy VOMITING Verified 07/28/16 16:24 [From Toradol] tramadol Allergy VOMITING Verified 07/28/16 16:24 oral conrast Allergy DIFFICULTY Uncoded 07/28/16 16:24 BREATHING Travel Screening - Travel/Exposure Within Last 30 Days Have you traveled within the last 30 days?: No - Travel/Exposure Within Last Year Have you traveled outside the [place] in the last year?: No - Additonal Travel Details Have you been exposed to anyone with a communicable illness?: No - Travel Symptoms Symptom Screening: None Review of Systems Constitutional: Reports: As per HPI. Denies: Chills, Fever, Malaise, Night sweats, Weakness, Weight change Eyes: Reports: As per HPI. Denies: Eye discharge, Eye pain, Photophobia, Vision change ENT: Reports: As per HPI. Denies: Congestion, Dental pain, Ear pain, Epistaxis , Hearing loss, Throat pain Respiratory: Reports: As per HPI. Denies: Cough, Dyspnea, Hemoptysis, Stridor, Wheezes Cardiovascular: Reports: As per HPI. Denies: Arrhythmia, Chest pain, Dyspnea on exertion, Edema, Murmurs, Orthopnea, Palpitations, Paroxysmal nocturnal dyspnea, Rheumatic Fever, Syncope Endocrine: Reports: As per HPI. Denies: Fatigue, Heat or cold intolerance, Polydipsia, Polyuria Gastrointestinal: Reports: As per HPI. Denies: Abdominal pain, Constipation, Diarrhea, Hematemesis, Hematochezia, Melena, Nausea, Vomiting Genitourinary: Reports: As per HPI. Denies: Abnormal menses, Discharge, Dyspareunia, Dysuria, Frequency, Hematuria, Incontinence, Retention, Urgency Musculoskeletal: Reports: As per HPI. Denies: Arthralgia, Back pain, Gout, Joint swelling, Myalgia, Neck pain Skin: Reports: As per HPI. Denies: Bruising, Change in color, Change in hair/ nails, Lesions, Pruritus, Rash Neurological: Reports: As per HPI. Denies: Abnormal gait, Confusion, Headache, Numbness, Paresthesias, Seizure, Tingling, Tremors, Vertigo, Weakness Psychiatric: Reports: As per HPI. Denies: Anxiety, Auditory hallucinations, Depression, Homicidal thoughts, Suicidal thoughts, Visual hallucinations Hematological/Lymphatic: Reports: As per HPI. Denies: Anemia, Blood Clots, Easy bleeding, Easy bruising, Swollen glands Past Medical History - SOCIAL HISTORY Smoking Status: Former smoker Alcohol Use: None Drug Use: None - RESPIRATORY Hx Respiratory Disorders: No Hx Sleep Apnea: Yes Hx of CPAP: Yes Comment:: CPAP here - CARDIOVASCULAR Hx Cardio Disorders: No Hx Hypertension: Yes - NEURO Hx Neuro Disorders: No - GI Hx GI Disorders: Yes Hx Abdominal Pain: Yes Hx Irritable Bowel: Yes Comment:: many surgeries related to septic appy - Hx Genitourinary Disorders: No - ENDOCRINE Hx Endocrine Disorders: Yes Hx Diabetes: Yes Hx Thyroid Disease: No - MUSCULOSKELETAL Hx Musculoskeletal Disorders: No - PSYCH Hx Psych Problems: No - HEMATOLOGY/ONCOLOGY Hx Hematology/Oncology Disorders: No Hx Cancer: Yes (uterine) Hx Chemotherapy: No Hx Radiation Therapy: No Family Medical History Any Significant Family History?: No Family Hx Comment (NOT TO BE USED IN PLACE OF ITEMS BELOW): denies Physical Exam - General Limitations: No limitations Course Vital Signs 05/28/17 21:47 Temperature 98.5 F Pulse Rate 83 Respiratory 20 Rate Blood Pressure 163/92 Pulse Ox 97 - Reevaluation(s) Reevaluation #1: 05/28/17 23:48 pt reassessed. no abd tenderness, only tender over ribs. i suspect an occult rib fx. Medical Decision Making - Lab Data Result diagrams: 05/28/17 22:45 05/28/17 22:45 Lab Results 05/28/17 05/28/17 Range/Units 22:45 22:45 WBC 8.6 (4.2-12.2) K/uL RBC 4.36 (3.80-5.40) M/uL Hgb 11.6 (11.6-16.0) gm/dl Hct 35.5 (35.0-47.0) % MCV 81.4 (81-97) fl MCH 26.6 L (27-33) pg MCHC 32.7 (32-36) g/dl RDW 14.3 (11.5-14.5) % Plt Count 232 (130-400) K/uL MPV 10.7 H (7.4-10.4) fl Gran % 62.8 (47-80) % Lymphocytes % 26.6 (16-45) % Monocytes % 7.2 (0-9) % Eosinophils % 3.1 (0-6) % Basophils % 0.3 (0-6) % Sodium 136 (136-145) mmol/L Potassium 4.8 (3.5-5.1) mmol/L Chloride 101 (98-107) mmol/L Carbon Dioxide 24.6 (22-30) mmol/L Anion Gap 10.4 (7-16) BUN 13 (7-17) mg/dL Creatinine 0.6 (0.52-1.04) mg/dL Estimated GFR > 60 ml/min Random Glucose 314 H (70-110) mg/dL Calcium 8.3 L (8.5-10.1) mg/dL Disposition Clinical Impression: Rib contusion Qualifiers: Encounter type: initial encounter Laterality: left Qualified Code(s): S20.212A - Contusion of left front wall of thorax, initial encounter Fall Qualifiers: Encounter type: initial encounter Qualified Code(s): W19.XXXA - Unspecified fall, initial encounter Disposition: Home, Self-Care Condition: (1) Good Instructions: Rib Fracture (ED), Contusion in Adults (ED) Additional Instructions: follow up with family doctor. return sooner if worse. have halter monitor. deep breaths 5 times an hour. Forms: Patient Portal Access Quality - Quality Measures Quality Measures: N/A - Blood Pressure Screening Blood Pressure Classification: Hypertensive Reading Systolic Measurement: 163 Diastolic Measurement: 92 Screening for High Blood Pressure: < First Hypertensive BP, F/U Documented > [ G8950] First Hypertensive Follow-up Interventions: Follow-up with rescreen GT 1 day and LT 4 weeks.
--- NOTE | 2017-05-29 12:34 | RADIOLOGY REPORT ---
EXAM: CHEST AND LEFT RIB SERIES HISTORY: PAIN. TECHNIQUE: Frontal view of the chest and five views of the left ribs were obtained. Comparison: None. FINDINGS: The heart size is normal. The lungs are clear. Minor scarring in the left lung base. The lungs are otherwise clear. No pneumothorax. Limited study due to osteopenia and patient body habitus, however, no discreet left rib fracture. The soft tissues are unremarkable. IMPRESSION: SOMEWHAT LIMITED STUDY DUE TO OSTEOPENIA AND PATIENT BODY HABITUS. NO DISCREET LEFT RIB FRACTURE. NO ACUTE CARDIOPULMONARY PROCESS. [facility]: [id number] [facility]
== END 2017-05-29 00:09 | disposition home or self-care (01) ==
LOC: ER 21:45
DX: S20.212A Contusion of left front wall of thorax, initial encounter (principal); R07.9 Chest pain, unspecified; R42 Dizziness and giddiness; R10.9 Unspecified abdominal pain; E11.9 Type 2 diabetes mellitus without complications; I10 Essential (primary) hypertension; Z87.891 Personal history of nicotine dependence; W17.89XA Other fall from one level to another, initial encounter; Y92.009 Unspecified place in unspecified non-institutional (private) residence as the place of occurrence of the external cause
CPT/HCPCS: 99283; 96372; 99284; 85025; 80048; 71101; J1170; J2550

== ENCOUNTER 2017-07-07 00:16 | Emergency (ER) | payer MEDICARE, MEDICAID ==
[2017-07-07] MEDS ORDERED: 0.9 % SODIUM CHLORIDE 1,000 ML BAG IV ONE (00:41)
[2017-07-07] MEDS ORDERED: DICYCLOMINE HCL 10 MG/ML AMPUL IM ONE (00:41)
[2017-07-07 01:13] LABS: BASO % 0.1 % (0-6); EOS % 1.4 % (0-6); GRAN % 74.2 % (47-80); HEMATOCRIT 38.7 % (35.0-47.0); HEMOGLOBIN 12.9 gm/dl (11.6-16.0); LYMPH % 16.3 % (16-45); MEAN CELL VOLUME 80.8 fl (81-97); MEAN CORPUSCULAR HEMOGLOBIN 26.9 pg (27-33); MEAN CORPUSCULAR HGB CONC 33.3 g/dl (32-36); MEAN PLATELET VOLUME 10.3 fl (7.4-10.4); PLATELET COUNT 261 K/uL (130-400); RED BLOOD COUNT 4.79 M/uL (3.80-5.40); RED CELL DISTRIBUTION WIDTH 14.9 % (11.5-14.5); WHITE BLOOD COUNT W/O DIFF 12.2 K/uL (4.2-12.2)
[2017-07-07 01:18] LABS: ALB/GLOB RATIO 1.2 (1.1-1.8); ALBUMIN 3.7 gm/dL (3.5-5.0); ALKALINE PHOSPHATASE 108 U/L (38-126); ALT/SGPT 51 U/L (9-52); ANION GAP 10.5 (7-16); AST/SGOT 20 U/L (14-36); BILIRUBIN,TOTAL 0.61 mg/dL (0.2-1.3); BLOOD UREA NITROGEN 10 mg/dL (7-17); CARBON DIOXIDE 29.5 mmol/L (22-30); CREATININE 0.6 mg/dL (0.52-1.04); EST GLOMERULAR FILTRATION RATE > 60 ml/min; GLUCOSE,RANDOM 308 mg/dL (70-110); LIPASE 43 U/L (23-300); TOTAL PROTEIN 6.9 gm/dL (6.3-8.2)
[2017-07-07] MEDS ORDERED: HYDROMORPHONE HCL 1MG/ML **SYRINGE IVP ONE ×2 (01:38→02:40)
--- NOTE | 2017-07-07 02:15 | Emergency Department Record ---
History of Present Illness - General Chief Complaint: Abdominal Pain Stated Complaint: LEFT SIDED ABD PAIN Time Seen by Provider: 07/07/17 00:27 Source: Patient Mode of Arrival: Ambulatory Limitations: No limitations - History of Present Illness Initial Comments: pt has no output from colostomy today. she has increased pain. she has a long hx sbo, multiple surgeries, hernias and resections. she has surgeons at [facility] and at [facility]. pt states she has been vomiting and that it tastes and smell like stool. MD Complaint: Abdominal pain Onset/Timin -: Days(s) Location: LLQ Radiation: LUQ, RUQ, LLQ, RLQ Migration to: No migration Quality: Cramping, Sharp, Stabbing Consistency: Constant, Intermittent Improves With: Nothing Worsens With: Nothing Associated Symptoms: Nausea, Vomiting - Related Data Patient : No Home Medications Medication Instructions Recorded Confirmed Last Taken Hydrocodone/Acetaminophen 2 tab PO QID 07/07/17 07/07/17 07/06/17 [Hydrocodone/Acetaminophen 10mg/325mg] Allergies Allergy/AdvReac Type Severity Reaction Status Date / Time Iodinated Contrast- Oral and Allergy DIFFICULTY Verified 07/07/17 00:26 IV Dye BREATHING ketorolac tromethamine Allergy VOMITING Verified 07/07/17 00:26 [From Toradol] tramadol Allergy VOMITING Verified 07/07/17 00:26 oral conrast Allergy DIFFICULTY Uncoded 07/07/17 00:26 BREATHING Travel Screening - Travel/Exposure Within Last 30 Days Have you traveled within the last 30 days?: No - Travel/Exposure Within Last Year Have you traveled outside the [place] in the last year?: No - Additonal Travel Details Have you been exposed to anyone with a communicable illness?: No - Travel Symptoms Symptom Screening: None Review of Systems Reviewed: No additional complaints except as noted below Constitutional: Reports: As per HPI. Denies: Chills, Fever, Malaise, Night sweats, Weakness, Weight change Eyes: Reports: As per HPI. Denies: Eye discharge, Eye pain, Photophobia, Vision change ENT: Reports: As per HPI. Denies: Congestion, Dental pain, Ear pain, Epistaxis , Hearing loss, Throat pain Respiratory: Reports: As per HPI. Denies: Cough, Dyspnea, Hemoptysis, Stridor, Wheezes Cardiovascular: Reports: As per HPI. Denies: Arrhythmia, Chest pain, Dyspnea on exertion, Edema, Murmurs, Orthopnea, Palpitations, Paroxysmal nocturnal dyspnea, Rheumatic Fever, Syncope Endocrine: Reports: As per HPI. Denies: Fatigue, Heat or cold intolerance, Polydipsia, Polyuria Gastrointestinal: Reports: As per HPI. Denies: Abdominal pain, Constipation, Diarrhea, Hematemesis, Hematochezia, Melena, Nausea, Vomiting Genitourinary: Reports: As per HPI. Denies: Abnormal menses, Discharge, Dyspareunia, Dysuria, Frequency, Hematuria, Incontinence, Retention, Urgency Musculoskeletal: Reports: As per HPI. Denies: Arthralgia, Back pain, Gout, Joint swelling, Myalgia, Neck pain Skin: Reports: As per HPI. Denies: Bruising, Change in color, Change in hair/ nails, Lesions, Pruritus, Rash Neurological: Reports: As per HPI. Denies: Abnormal gait, Confusion, Headache, Numbness, Paresthesias, Seizure, Tingling, Tremors, Vertigo, Weakness Psychiatric: Reports: As per HPI. Denies: Anxiety, Auditory hallucinations, Depression, Homicidal thoughts, Suicidal thoughts, Visual hallucinations Hematological/Lymphatic: Reports: As per HPI. Denies: Anemia, Blood Clots, Easy bleeding, Easy bruising, Swollen glands Past Medical History - SOCIAL HISTORY Smoking Status: Former smoker Alcohol Use: None Drug Use: None - RESPIRATORY Hx Respiratory Disorders: No Hx Sleep Apnea: Yes Hx of CPAP: Yes Comment:: CPAP here - CARDIOVASCULAR Hx Cardio Disorders: No Hx Hypertension: Yes - NEURO Hx Neuro Disorders: No - GI Hx GI Disorders: Yes Hx Abdominal Pain: Yes Hx Irritable Bowel: Yes Comment:: many surgeries related to septic appy - Hx Genitourinary Disorders: No - ENDOCRINE Hx Endocrine Disorders: Yes Hx Diabetes: Yes Hx Thyroid Disease: No - MUSCULOSKELETAL Hx Musculoskeletal Disorders: No - PSYCH Hx Psych Problems: No - HEMATOLOGY/ONCOLOGY Hx Hematology/Oncology Disorders: No Hx Cancer: Yes (uterine) Hx Chemotherapy: No Hx Radiation Therapy: No Family Medical History Any Significant Family History?: No Family Hx Comment (NOT TO BE USED IN PLACE OF ITEMS BELOW): denies Physical Exam - General General Appearance: Alert, Oriented x3, Cooperative, Moderate distress - Head Head exam: Normal inspection - Eye Eye exam: Normal appearance, PERRL, EOMI Pupils: Normal accommodation - ENT ENT exam: Normal exam, Mucous membranes moist, Normal external ear exam, Normal orophraynx Ear exam: Normal external inspection. negative: External canal tenderness Nasal Exam: Normal inspection. negative: Discharge, Sinus tenderness Mouth exam: Normal external inspection, Tongue normal Teeth exam: Normal inspection. negative: Dental caries Throat exam: Normal inspection. negative: Tonsillar erythema, Tonsillar exudate - Neck Neck exam: Normal inspection, Full ROM. negative: Tenderness - Respiratory Respiratory exam: Normal lung sounds bilaterally. negative: Respiratory distress - Cardiovascular Cardiovascular Exam: Normal rhythm, Normal heart sounds, Tachycardia - GI/Abdominal GI/Abdominal exam: Soft, Normal bowel sounds, Distended, Guarding, Hernia, Tenderness - Rectal Rectal exam: Deferred - exam: Deferred - Extremities Extremities exam: Normal inspection, Full ROM, Normal capillary refill. negative: Tenderness - Back Back exam: Reports: Normal inspection, Full ROM. Denies: Muscle spasm, Rash noted, Tenderness - Neurological Neurological exam: Alert, Normal gait, Oriented X3, Reflexes normal - Psychiatric Psychiatric exam: Normal affect, Normal mood - Skin Skin exam: Dry, Intact, Normal color, Warm Course Vital Signs 07/07/17 07/07/17 00:33 01:30 Temperature 98.5 F Pulse Rate [ 114 H 100 H Pulse Ox Probe] Respiratory 24 20 Rate Blood Pressure 213/108 171/101 [Left Arm] Pulse Ox 96 97 Medical Decision Making - Lab Data Result diagrams: 07/07/17 00:50 07/07/17 00:50 Lab Results 07/07/17 07/07/17 07/07/17 Range/Units 00:50 00:50 00:50 WBC 12.2 (4.2-12.2) K/uL RBC 4.79 (3.80-5.40) M/uL Hgb 12.9 (11.6-16.0) gm/dl Hct 38.7 (35.0-47.0) % MCV 80.8 L (81-97) fl MCH 26.9 L (27-33) pg MCHC 33.3 (32-36) g/dl RDW 14.9 H (11.5-14.5) % Plt Count 261 (130-400) K/uL MPV 10.3 (7.4-10.4) fl Gran % 74.2 (47-80) % Lymphocytes % 16.3 (16-45) % Monocytes % 8.0 (0-9) % Eosinophils % 1.4 (0-6) % Basophils % 0.1 (0-6) % Sodium 139 (136-145) mmol/L Potassium 4.1 (3.5-5.1) mmol/L Chloride 99 (98-107) mmol/L Carbon Dioxide 29.5 (22-30) mmol/L Anion Gap 10.5 (7-16) BUN 10 (7-17) mg/dL Creatinine 0.6 (0.52-1.04) mg/dL Estimated GFR > 60 ml/min Random Glucose 308 H (70-110) mg/dL Lactic Acid 1.0 (0.7-2.1) mmol/L Calcium 8.7 (8.5-10.1) mg/dL Total Bilirubin 0.61 (0.2-1.3) mg/dL AST 20 (14-36) U/L ALT 51 (9-52) U/L Alkaline Phosphatase 108 (38-126) U/L Total Protein 6.9 (6.3-8.2) gm/dL Albumin 3.7 (3.5-5.0) gm/dL Globulin 3.2 (1.4-4.8) gm/dL Albumin/Globulin Ratio 1.2 (1.1-1.8) Lipase 43 (23-300) U/L Disposition Disposition: Transfer Clinical Impression: SBO (small bowel obstruction) Disposition: Acute Care Hospital Transfer Transfer To: [facility] Reason For Transfer: needs surgeon Accepting Physician: mary han Time Discussed w/Accepting Physician: 02:37 Condition: (2) Stable Forms: Patient Portal Access Quality - Quality Measures Quality Measures: N/A - Blood Pressure Screening Does Patient Have Any of the Following: Active Dx of HTN Blood Pressure Classification: Hypertensive Reading Systolic Measurement: 171 Diastolic Measurement: 101 Screening for High Blood Pressure: Patient Exclusion, Hx of HTN [G9744]
[2017-07-07 02:36] LABS: URINE APPEARANCE CLEAR; URINE BILIRUBIN NEGATIVE (NEGATIVE); URINE BLOOD NEGATIVE (NEGATIVE); URINE COLOR YELLOW; URINE KETONE TRACE (NEGATIVE); URINE LEUKOCYTE ESTERASE NEGATIVE (NEGATIVE); URINE NITRITE NEGATIVE (NEGATIVE); URINE UROBILINOGEN 0.2 E.U./dL (0.20 - 1.00)
[2017-07-07 02:45] LABS: URINE BACTERIA 1+; URINE RBC 0 - 2 (NONE SEEN); URINE SQUAMOUS EPITHELIAL CELL 16 - 20 /hpf; URINE YEAST FEW
--- NOTE | 2017-07-08 07:30 | CT SCAN REPORT ---
EXAM: CT OF THE ABDOMEN AND PELVIS WITHOUT CONTRAST HISTORY: LEFT LOWER QUADRANT PAIN. TECHNIQUE: Sequential axial images were obtained from the diaphragms through the ischiorectal fossa without intravenous or oral contrast administration. FINDINGS: The visualized lung bases appear normal. There is mild cardiomegaly. The nonopacified liver appears normal. The gallbladder has been surgically removed. The pancreas appears normal. There is a subtle low density lesion in the spleen. Lack of contrast limits evaluation. There are nonobstructing calculi in both kidneys. No CT findings suggestive of obstructive of uropathy. There is a large ventral wall hernia containing small and large bowel. In addition, there is a Spigelian hernia which contains small bowel. There are dilated loops of small bowel with associated wall thickening. Findings are consistent with obstruction. The appendix is not visualized on this examination. The urinary bladder appears grossly unremarkable. No pelvic mass is appreciated. The osseous structures are normal. IMPRESSION: 1. LARGE VENTRAL WALL HERNIA CONTAINING SMALL AND LARGE BOWEL. THERE IS APPARENT STRANGULATION OF THE SMALL BOWEL. THERE IS DISTENTION AND WALL THICKENING. ADDITIONAL SPIGELIAN HERNIA CONTAINING SMALL BOWEL. 2. NONOBSTRUCTING CALCULI IN BOTH KIDNEYS. 3. HYPERDENSE LESION IN THE SPLEEN WHICH IS INDETERMINATE DUE TO LACK OF INTRAVENOUS CONTRAST ADMINISTRATION. JOB NUMBER: [id number] [facility]
== END 2017-07-07 03:05 | disposition short-term general hospital (02) ==
LOC: ER 00:16
DX: K56.60 Unspecified intestinal obstruction (principal); R10.84 Generalized abdominal pain; I10 Essential (primary) hypertension; Z87.891 Personal history of nicotine dependence; Z85.42 Personal history of malignant neoplasm of other parts of uterus
CPT/HCPCS: 99285 ×2; 96376; 96374; 96372; 96361; 83605; 83690; 85025; 80053; 81001; 74176; J1170; J7030

== ENCOUNTER 2017-08-24 14:06 | Emergency (ER) | payer MEDICARE, MEDICAID ==
--- NOTE | 2017-08-24 14:40 | Emergency Department Record ---
History of Present Illness - General Chief Complaint: Abdominal Pain Stated Complaint: CAN'T EAT OR DRINK,ABDOMINAL PAIN X4 DAYS Time Seen by Provider: 08/24/17 14:34 Source: Patient Mode of Arrival: Ambulatory - History of Present Illness Initial Comments: patient had a gastric sleeve done at the [facility] by Dr. Lau and 4 days ago abdominal pain and vomiting. Patient has a colostomy and liquid coming through in the bag. Abdominal surgeries time 17. Hysterectomy. GB removal. colostomy placed 9 years ago and she had a bowel obstruction partial and treated at [facility] before her gastric sleeve placed. frequent bowel obstructions. Primary Dr. Cristobal and Dr. Alicia. Vomiting this AM. Onset/Timin -: Days(s) Location: Diffuse Radiation: None Migration to: No migration Severity: Severe Quality: Sharp Consistency: Constant Improves With: Nothing Worsens With: Nothing Associated Symptoms: Nausea, Vomiting - Related Data Patient : No Home Medications Medication Instructions Recorded Confirmed Last Taken Metformin HCl 500 mg PO DAILY 08/24/17 08/24/17 Unknown Allergies Allergy/AdvReac Type Severity Reaction Status Date / Time Iodinated Contrast- Oral and Allergy DIFFICULTY Verified 07/07/17 00:26 IV Dye BREATHING ketorolac tromethamine Allergy VOMITING Verified 07/07/17 00:26 [From Toradol] tramadol Allergy VOMITING Verified 07/07/17 00:26 oral conrast Allergy DIFFICULTY Uncoded 07/07/17 00:26 BREATHING Travel Screening - Travel/Exposure Within Last 30 Days Have you traveled within the last 30 days?: No Review of Systems Reviewed: No additional complaints except as noted below Constitutional: Reports: As per HPI. Denies: Chills, Fever, Malaise, Night sweats, Weakness, Weight change Eyes: Reports: As per HPI. Denies: Eye discharge, Eye pain, Photophobia, Vision change ENT: Reports: As per HPI. Denies: Congestion, Dental pain, Ear pain, Epistaxis , Hearing loss, Throat pain Respiratory: Reports: As per HPI. Denies: Cough, Dyspnea, Hemoptysis, Stridor, Wheezes Cardiovascular: Reports: As per HPI. Denies: Arrhythmia, Chest pain, Dyspnea on exertion, Edema, Murmurs, Orthopnea, Palpitations, Paroxysmal nocturnal dyspnea, Rheumatic Fever, Syncope Endocrine: Reports: As per HPI. Denies: Fatigue, Heat or cold intolerance, Polydipsia, Polyuria Gastrointestinal: Reports: As per HPI, Abdominal pain, Nausea, Vomiting, Other ( colostomy for 9 years). Denies: Constipation, Diarrhea, Hematemesis, Hematochezia, Melena Genitourinary: Reports: As per HPI. Denies: Abnormal menses, Discharge, Dyspareunia, Dysuria, Frequency, Hematuria, Incontinence, Retention, Urgency Musculoskeletal: Reports: As per HPI. Denies: Arthralgia, Back pain, Gout, Joint swelling, Myalgia, Neck pain Skin: Reports: As per HPI. Denies: Bruising, Change in color, Change in hair/ nails, Lesions, Pruritus, Rash Neurological: Reports: As per HPI. Denies: Abnormal gait, Confusion, Headache, Numbness, Paresthesias, Seizure, Tingling, Tremors, Vertigo, Weakness Psychiatric: Reports: As per HPI. Denies: Anxiety, Auditory hallucinations, Depression, Homicidal thoughts, Suicidal thoughts, Visual hallucinations Hematological/Lymphatic: Reports: As per HPI. Denies: Anemia, Blood Clots, Easy bleeding, Easy bruising, Swollen glands Past Medical History - SOCIAL HISTORY Smoking Status: Former smoker Alcohol Use: None Drug Use: None - RESPIRATORY Hx Respiratory Disorders: Yes Hx Sleep Apnea: Yes Hx of CPAP: Yes Comment:: CPAP here - CARDIOVASCULAR Hx Cardio Disorders: Yes Hx Hypertension: Yes - NEURO Hx Neuro Disorders: No - GI Hx GI Disorders: Yes Hx Abdominal Pain: Yes Hx Irritable Bowel: Yes Comment:: many surgeries related to septic appy - Hx Genitourinary Disorders: No - ENDOCRINE Hx Endocrine Disorders: Yes Hx Diabetes: Yes Hx Thyroid Disease: No - MUSCULOSKELETAL Hx Musculoskeletal Disorders: No - PSYCH Hx Psych Problems: No - HEMATOLOGY/ONCOLOGY Hx Hematology/Oncology Disorders: Yes Hx Cancer: Yes (uterine) Hx Chemotherapy: No Hx Radiation Therapy: No Family Medical History Any Significant Family History?: No Family Hx Comment (NOT TO BE USED IN PLACE OF ITEMS BELOW): denies Physical Exam - General General Appearance: Alert, Oriented x3, Cooperative, Moderate distress - Head Head exam: Normal inspection - Eye Eye exam: Normal appearance, PERRL Pupils: Normal accommodation - ENT ENT exam: Normal exam, Mucous membranes moist, Normal external ear exam, Normal orophraynx, TM's normal bilaterally Ear exam: Normal external inspection. negative: External canal tenderness Nasal Exam: Normal inspection. negative: Discharge, Sinus tenderness Mouth exam: Normal external inspection, Tongue normal Teeth exam: Normal inspection. negative: Dental caries Throat exam: Normal inspection. negative: Tonsillar erythema, Tonsillar exudate - Neck Neck exam: Normal inspection, Full ROM. negative: Tenderness - Respiratory Respiratory exam: Normal lung sounds bilaterally. negative: Respiratory distress - Cardiovascular Cardiovascular Exam: Regular rate, Normal rhythm, Normal heart sounds - GI/Abdominal GI/Abdominal exam: Soft, Normal bowel sounds. negative: Tenderness - Rectal Rectal exam: Deferred - exam: Deferred - Extremities Extremities exam: Normal inspection, Full ROM, Normal capillary refill. negative: Tenderness - Back Back exam: Reports: Normal inspection, Full ROM. Denies: Muscle spasm, Rash noted, Tenderness - Neurological Neurological exam: Alert, Normal gait, Oriented X3, Reflexes normal - Psychiatric Psychiatric exam: Normal affect, Normal mood - Skin Skin exam: Dry, Intact, Normal color, Warm Course Vital Signs 08/24/17 14:21 Temperature 99.3 F Pulse Rate 116 H Respiratory 18 Rate Blood Pressure 189/92 Pulse Ox 96 transfer to [facility] for SBO - Reevaluation(s) Reevaluation #1: Discussed case with Dr. Dickson and he accepted the patient and will call with a bed. 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 insulin use: with mcfp use Qualified Code(s): E11.65 - Type 2 diabetes mellitus with hyperglycemia Disposition: Acute Care Hospital Transfer Condition: (2) Stable Forms: Patient Portal Access Time of Disposition: 17:55 Quality - Quality Measures Quality Measures: N/A - Blood Pressure Screening Does Patient Have Any of the Following: No Blood Pressure Classification: Hypertensive Reading Systolic Measurement: 189 Diastolic Measurement: 92 Screening for High Blood Pressure: < First Hypertensive BP, F/U Documented > [ G8950] First Hypertensive Follow-up Interventions: Referral to alternative/primary care provider.
[2017-08-24] MEDS ORDERED: 0.9 % SODIUM CHLORIDE 1,000 ML BAG IV ONE (15:13)
[2017-08-24] MEDS ORDERED: ONDANSETRON HCL IV 4 MG/2 ML VIAL IV ONE (15:13)
[2017-08-24] MEDS ORDERED: HYDROMORPHONE HCL 1MG/ML **SYRINGE IVP ONE ×2 (15:15→17:26)
[2017-08-24 15:44] LABS: BASO % 0.3 % (0-6); EOS % 2.7 % (0-6); GRAN % 55.5 % (47-80); HEMATOCRIT 39.1 % (35.0-47.0); HEMOGLOBIN 13.2 gm/dl (11.6-16.0); LYMPH % 27.1 % (16-45); MEAN CELL VOLUME 78.7 fl (81-97); MEAN CORPUSCULAR HEMOGLOBIN 26.6 pg (27-33); MEAN CORPUSCULAR HGB CONC 33.8 g/dl (32-36); MEAN PLATELET VOLUME 11.5 fl (7.4-10.4); MONO % 14.4 % (0-9); PLATELET COUNT 293 K/uL (130-400); RED BLOOD COUNT 4.97 M/uL (3.80-5.40); RED CELL DISTRIBUTION WIDTH 15.7 % (11.5-14.5); WHITE BLOOD COUNT W/O DIFF 6.9 K/uL (4.2-12.2)
[2017-08-24 15:59] LABS: ALBUMIN 3.6 g/dL (4.0-5.0); ALKALINE PHOSPHATASE 165 U/L (35-104); ALT/SGPT 80 U/L (<33); AST/SGOT 78 U/L (10.0-35.0); BLOOD UREA NITROGEN 17 mg/dL (6-20); CREATININE 0.6 mg/dL (0.5-0.9); EST GLOMERULAR FILTRATION RATE > 60 mL/min; GLUCOSE,RANDOM 221 mg/dL (74-109); LIPASE 26 U/L (13-60); TOTAL PROTEIN 6.9 g/dL (6.6-8.7)
[2017-08-24 16:01] LABS: BILIRUBIN,DIRECT < 0.2 mg/dL (0-0.3)
[2017-08-24 16:43] LABS: URINE APPEARANCE CLOUDY; URINE BILIRUBIN SMALL (NEGATIVE); URINE BLOOD NEGATIVE (NEGATIVE); URINE COLOR ORANGE; URINE KETONE TRACE (NEGATIVE); URINE LEUKOCYTE ESTERASE NEGATIVE (NEGATIVE); URINE NITRITE NEGATIVE (NEGATIVE)
[2017-08-24] MEDS ORDERED: 0.9 % SODIUM CHLORIDE 1000ML 1,000 ML IV ONE (17:26)
--- NOTE | 2017-08-25 10:21 | CT SCAN REPORT ---
EXAM: CT OF THE ABDOMEN AND PELVIS WITHOUT CONTRAST HISTORY: NAUSEA AND VOMITING. ABDOMINAL PAIN. FEVER SINCE GASTRIC SLEEVE PROCEDURE 07/15/17. PREVIOUS CHOLECYSTECTOMY, APPENDECTOMY, HYSTERECTOMY AND COLOSTOMY. PATIENT REPORTS ALLERGIES TO ORAL AND IV CONTRAST. TECHNIQUE: Routine noncontrast CT images of the abdomen and pelvis were obtained. Comparison: 07/07/17. FINDINGS: The visualized lung bases are unremarkable. There is hepatic steatosis. In addition there is hepatomegaly with the liver measuring 21 cm mid clavicular line. There is also splenomegaly with the spleen measuring 14.7 cm in length. There is redemonstration of a hypodense lesion within the spleen measuring approximately 3.3 cm, difficult to fully characterize may relate to a hemangioma. The gallbladder is surgically absent. The pancreas and adrenals are unremarkable. There are small bilateral intrarenal calculi. No ureteral calculi or hydronephrosis. There are reports of real changes of vertical sleeve gastrectomy. There are two large herniations involving the anterior abdominal/pelvic wall. More superiorly, the herniation on the left contains numerous bowel loops measuring up to 3.3 cm in caliber. There is mild haziness of the mesentery. Additionally the second herniation more inferiorly and on the midline and on the right contains a dilated loop of bowel demonstrating clear wall thickening and inflammatory change. The loop measures 5.7 cm in caliber. There also does appear to be a transition point in this region. Findings appear worrisome when compared to the previous examination and are concerning for a new bowel obstruction. Bowel anastomotic changes are noted. The bladder appears unremarkable. The uterus is absent. The aorta is normal in caliber. No abdominal or pelvic lymphadenopathy. IMPRESSION: 1. THE PATIENT HAS TWO KNOWN LARGE ABDOMINAL/PELVIC HERNIA DEFECTS. THE MORE INFERIOR DEFECT WITHIN THE MIDLINE AND TO THE RIGHT OF MIDLINE APPEARS TO DEMONSTRATE AN INTERVAL WORSENED APPEARANCE CONSISTENT WITH BOWEL OBSTRUCTION. THERE IS A DILATED BOWEL LOOP WITH WALL THICKENING AND SURROUNDING INFLAMMATORY CHANGE. TRANSITION POINT APPEARS NOTED SEEN BEST ON CORONAL IMAGE 42-45 WITHIN THE RIGHT LOWER QUADRANT. 2. THE OTHER LARGE HERNIA DEFECT ON THE LEFT CONTAINS A FEW PROMINENT BOWEL LOOPS APPEARING SIMILAR TO PREVIOUS EXAM. 3. HEPATOMEGALY AND HEPATIC STEATOSIS. 4. SPLENOMEGALY. HYPODENSE SPLENIC LESION NONSPECIFIC POSSIBLY RELATED TO A HEMANGIOMA. 5. BILATERAL INTRARENAL CALCULI. J[facility]BER: [id number] [facility]
== END 2017-08-24 18:59 | disposition short-term general hospital (02) ==
LOC: ER 14:06
DX: K56.690 Other partial intestinal obstruction (principal); R11.2 Nausea with vomiting, unspecified; E11.65 Type 2 diabetes mellitus with hyperglycemia; R94.5 Abnormal results of liver function studies; I10 Essential (primary) hypertension; Z79.4 Long term (current) use of insulin; Z87.891 Personal history of nicotine dependence
CPT/HCPCS: 99285 ×2; 96376; 96374; 96375; 96361; 83690; 85025; 80076; 80048; 81003; 74176; J2405; J1170; J7030

== ENCOUNTER 2018-02-28 13:00 | Emergency (ER) | payer MEDICARE, MEDICAID ==
[2018-02-28] MEDS ORDERED: 0.9 % SODIUM CHLORIDE 1,000 ML BAG IV ONE (13:09)
[2018-02-28] MEDS ORDERED: METHYLPREDNISOLONE PF 125MG/VIAL IVP ONE (13:09)
[2018-02-28] MEDS ORDERED: ONDANSETRON HCL IV 4 MG/2 ML VIAL IVP ONE (13:09)
[2018-02-28] MEDS ORDERED: DIPHENHYDRAMINE HCL 50 MG/ML VIAL IVP ONE (13:09)
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
[2018-02-28 13:50] LABS: BASO % 0.2 % (0-6); EOS % 4.1 % (0-6); GRAN % 63.6 % (47-80); HEMATOCRIT 41.2 % (35.0-47.0); HEMOGLOBIN 13.2 gm/dl (11.6-16.0); LYMPH % 23.2 % (16-45); MEAN CELL VOLUME 82.4 fl (81-97); MEAN CORPUSCULAR HEMOGLOBIN 26.4 pg (27-33); MEAN PLATELET VOLUME 10.2 fl (7.4-10.4); MONO % 8.9 % (0-9); PLATELET COUNT 291 K/uL (130-400); RED CELL DISTRIBUTION WIDTH 14.8 % (11.5-14.5); WHITE BLOOD COUNT W/O DIFF 8.1 K/uL (4.2-12.2)
[2018-02-28] MEDS ORDERED: ACETAMINOPHEN 1,000 MG/100 ML BTL IVPB ONE (13:58)
[2018-02-28] MEDS ORDERED: SILVER SULFADIAZINE 25 GM CREAM TOP ONE (14:01)
[2018-02-28 14:03] LABS: BLOOD UREA NITROGEN 12 mg/dL (6-20); CREATININE 0.5 mg/dL (0.5-0.9); EST GLOMERULAR FILTRATION RATE > 60 mL/min; TOTAL PROTEIN 6.7 g/dL (6.6-8.7)
[2018-02-28 14:05] LABS: GLUCOSE,RANDOM 196 mg/dL (74-109)
[2018-02-28 14:08] LABS: ALBUMIN 3.4 g/dL (4.0-5.0); ALKALINE PHOSPHATASE 94 U/L (35-104); ALT/SGPT 12 U/L (<33); AST/SGOT 20 U/L (10.0-35.0); LIPASE 46 U/L (13-60)
[2018-02-28] MEDS ORDERED: HYDROCODONE/APAP 7.5/325MG TABLET PO ONE (17:40)
--- NOTE | 2018-03-02 07:31 | CT SCAN REPORT ---
DATE: 02/28/2018. EXAM: CT OF THE ABDOMEN AND PELVIS WITH CONTRAST. HISTORY: Left lower quadrant pain. Nausea and vomiting. Constipation. Symptoms have been present for three days. TECHNIQUE: Routine CT imaging of the abdomen and pelvis obtained following the intravenous administration of contrast. Amount and type of contrast in the medical record. FINDINGS: The visualized lung bases are unremarkable. The gallbladder is surgically absent. The liver, pancreas, and adrenals are unremarkable. The spleen is enlarged measuring 14.5 cm in length. There is a 3.0 cm size range hypodensity within the spleen which may relate to a cyst or hemangioma. Ultrasound could be obtained for further assessment. This appears similar in size compared to previous examination. There is a nonobstructing left intrarenal calculus. The kidneys enhance and excrete contrast normally. There appears to be surgical change of vertical sleeve gastrectomy. Surgical changes within the rectum as well as additional surgical change within a bowel loop anteriorly. This is within the midline and protrudes through a large, 8.0 cm transverse hernia defect. Additionally there is a left lateral abdominal wall hernia defect containing fat and bowel loops measuring at least 6.4 x 7.6 cm. Portions of the bowel loops project lateral to the plane of imaging. No conclusive acute process is seen. Bladder is unremarkable. Uterus is surgically absent. There is a similar left adnexal cyst measuring 6.1 x 3.7 cm size range. Aorta enhances normally with contrast. No abdominal or pelvic lymphadenopathy. No acute osseous abnormality. IMPRESSION: 1. THERE ARE LARGE VENTRAL AND LEFT LATERAL ABDOMINAL WALL HERNIAS CONTAINING FAT AND LOOPS OF BOWEL. IT WOULD BE DIFFICULT TO COMPLETELY EXCLUDE A COMPONENT OF BOWEL OBSTRUCTION. THE LARGEST LOOP OF BOWEL IS ANTERIOR MEASURING 6.2 CM (MEASURED 5.2 CM ON PREVIOUS, 04/14/2017 EXAMINATION). PLEASE NOTE MANY LOOPS OF BOWEL EXTEND LATERAL TO THE PLANE OF IMAGING. 2. SIMILAR SPLENIC LESION MEASURING GREATER THAN 3.0 CM IN SIZE. THIS COULD RELATE TO A CYST OR HEMANGIOMA. ULTRASOUND COULD BE OBTAINED FOR FURTHER ASSESSMENT. 3. THERE ARE BILATERAL OVARIAN/ADNEXAL CYSTS. THE CYST ON THE LEFT APPEARS SIMILAR TO THE PREVIOUS EXAMINATION AND ON THE RIGHT APPEARS INCREASED. PELVIC ULTRASOUND COULD BE OBTAINED FOR FURTHER ASSESSMENT. 4. OTHER CHRONIC FINDINGS ABOVE. JOB NUMBER: [id number] [facility]
== END 2018-02-28 18:12 | disposition home or self-care (01) ==
LOC: ER 13:00
DX: T24.231A Burn of second degree of right lower leg, initial encounter (principal); R11.2 Nausea with vomiting, unspecified; G89.29 Other chronic pain; R10.32 Left lower quadrant pain; X17.XXXA Contact with hot engines, machinery and tools, initial encounter; I10 Essential (primary) hypertension; Z87.891 Personal history of nicotine dependence; Z98.84 Bariatric surgery status
CPT/HCPCS: 99284 ×2; 96365; 96375; 96361; 83605; 83690; 85025; 80053; 84703; 74177; Q9967; J2405; J1200; J2930; J7030

== ENCOUNTER 2018-11-21 00:07 | Emergency (ER) | payer MEDICARE, MEDICAID ==
[2018-11-21] MEDS ORDERED: ONDANSETRON HCL IV 4 MG/2 ML VIAL IV ONE (00:38)
[2018-11-21] MEDS ORDERED: 0.9 % SODIUM CHLORIDE 1,000 ML BAG IV ONE (00:38)
[2018-11-21] MEDS ORDERED: HYDROMORPHONE HCL 2 MG/ML VIAL IVP ONE ×2 (00:44→02:13)
[2018-11-21 01:00] LABS: BASO % 0.4 % (0-6); GRAN % 50.2 % (47-80); HEMATOCRIT 35.1 % (35.0-47.0); HEMOGLOBIN 10.6 gm/dl (11.6-16.0); LYMPH % 37.4 % (16-45); MEAN CELL VOLUME 69.2 fl (81-97); MEAN CORPUSCULAR HEMOGLOBIN 20.9 pg (27-33); MEAN CORPUSCULAR HGB CONC 30.2 g/dl (32-36); MEAN PLATELET VOLUME 10.3 fl (7.4-10.4); PLATELET COUNT 354 K/uL (130-400); RED BLOOD COUNT 5.07 M/uL (3.80-5.40); RED CELL DISTRIBUTION WIDTH 20.4 % (11.5-14.5); WHITE BLOOD COUNT W/O DIFF 7.6 K/uL (4.2-12.2)
[2018-11-21 01:00] LABS: URINE APPEARANCE CLEAR; URINE BILIRUBIN NEGATIVE (NEGATIVE); URINE BLOOD NEGATIVE (NEGATIVE); URINE COLOR YELLOW; URINE GLUCOSE (UA) NEGATIVE (NEGATIVE); URINE KETONE NEGATIVE (NEGATIVE); URINE NITRITE NEGATIVE (NEGATIVE); URINE PROTEIN TRACE (NEGATIVE)
[2018-11-21 01:03] LABS: URINE LEUKOCYTE ESTERASE NEGATIVE (NEGATIVE)
[2018-11-21 01:14] LABS: BLOOD UREA NITROGEN 15 mg/dL (6-20); CREATININE 0.6 mg/dL (0.5-0.9); EST GLOMERULAR FILTRATION RATE > 60 mL/min
[2018-11-21 01:15] LABS: TOTAL PROTEIN 7.2 g/dL (6.6-8.7)
[2018-11-21 01:17] LABS: GLUCOSE,RANDOM 122 mg/dL (74-109)
[2018-11-21 01:19] LABS: ALB/GLOB RATIO 1.1 (1.1-1.8); ALBUMIN 3.8 g/dL (4.0-5.0); ALT/SGPT 9 U/L (<33); AST/SGOT 14 U/L (10.0-35.0)
[2018-11-21 01:20] LABS: ALKALINE PHOSPHATASE 81 U/L (45-87); LIPASE 23 U/L (13-60)
--- NOTE | 2018-11-21 01:30 | Emergency Department Record ---
History of Present Illness - General Chief Complaint: Abdominal Pain Stated Complaint: ABDOMINAL PAIN SP SURGERY Time Seen by Provider: 11/21/18 00:13 Source: Patient Mode of Arrival: Ambulatory Limitations: No limitations - History of Present Illness Initial Comments: pt is having abd pain and cramping. she has had 17 abd surgeries. she vomits daily but she is vomiting more then usual. she has done well for the last year. she has had her colostomy reversed MD Complaint: Abdominal pain Onset/Timin -: Days(s) Location: Periumbilical Radiation: Back Migration to: No migration Severity: Moderate Severity scale (1-10): 6 Quality: Sharp, Stabbing Consistency: Constant Improves With: Nothing Worsens With: Movement Context: Recent surgery/procedure Associated Symptoms: Denies other symptoms - Related Data Patient : No Allergies Allergy/AdvReac Type Severity Reaction Status Date / Time Iodinated Contrast- Oral and Allergy DIFFICULTY Verified 11/21/18 00:16 IV Dye BREATHING ketorolac tromethamine Allergy VOMITING Verified 11/21/18 00:16 [From Toradol] tramadol Allergy VOMITING Verified 11/21/18 00:16 oral conrast Allergy DIFFICULTY Uncoded 11/21/18 00:16 BREATHING Travel Screening - Travel/Exposure Within Last 30 Days Have you traveled within the last 30 days?: No - Travel/Exposure Within Last Year Have you traveled outside the [place] in the last year?: No - Additonal Travel Details Have you been exposed to anyone with a communicable illness?: No - Travel Symptoms Symptom Screening: None Review of Systems Reviewed: No additional complaints except as noted below Constitutional: Reports: As per HPI. Denies: Chills, Fever, Malaise, Night sweats, Weakness, Weight change Eyes: Reports: As per HPI. Denies: Eye discharge, Eye pain, Photophobia, Vision change ENT: Reports: As per HPI. Denies: Congestion, Dental pain, Ear pain, Epistaxis , Hearing loss, Throat pain Respiratory: Reports: As per HPI. Denies: Cough, Dyspnea, Hemoptysis, Stridor, Wheezes Cardiovascular: Reports: As per HPI. Denies: Arrhythmia, Chest pain, Dyspnea on exertion, Edema, Murmurs, Orthopnea, Palpitations, Paroxysmal nocturnal dyspnea, Rheumatic Fever, Syncope Endocrine: Reports: As per HPI. Denies: Fatigue, Heat or cold intolerance, Polydipsia, Polyuria Gastrointestinal: Reports: As per HPI, Abdominal pain, Diarrhea, Nausea, Vomiting. Denies: Constipation, Hematemesis, Hematochezia, Melena Genitourinary: Reports: As per HPI. Denies: Abnormal menses, Discharge, Dyspareunia, Dysuria, Frequency, Hematuria, Incontinence, Retention, Urgency Musculoskeletal: Reports: As per HPI. Denies: Arthralgia, Back pain, Gout, Joint swelling, Myalgia, Neck pain Skin: Reports: As per HPI. Denies: Bruising, Change in color, Change in hair/ nails, Lesions, Pruritus, Rash Neurological: Reports: As per HPI. Denies: Abnormal gait, Confusion, Headache, Numbness, Paresthesias, Seizure, Tingling, Tremors, Vertigo, Weakness Psychiatric: Reports: As per HPI. Denies: Anxiety, Auditory hallucinations, Depression, Homicidal thoughts, Suicidal thoughts, Visual hallucinations Hematological/Lymphatic: Reports: As per HPI. Denies: Anemia, Blood Clots, Easy bleeding, Easy bruising, Swollen glands Past Medical History - SOCIAL HISTORY Smoking Status: Former smoker Alcohol Use: Rare Drug Use: Occasional - RESPIRATORY Hx Respiratory Disorders: Yes Hx Sleep Apnea: Yes (not since sx) - CARDIOVASCULAR Hx Cardio Disorders: No - NEURO Hx Neuro Disorders: No - GI Hx GI Disorders: Yes Hx Abdominal Pain: Yes Hx Irritable Bowel: Yes Comment:: many surgeries related to septic appy - Hx Genitourinary Disorders: No - ENDOCRINE Hx Endocrine Disorders: No Hx Diabetes: No Hx Thyroid Disease: No - MUSCULOSKELETAL Hx Musculoskeletal Disorders: No - PSYCH Hx Psych Problems: No - HEMATOLOGY/ONCOLOGY Hx Hematology/Oncology Disorders: Yes Hx Cancer: Yes (uterine) Hx Chemotherapy: No Hx Radiation Therapy: No Family Medical History Any Significant Family History?: No Family Hx Comment (NOT TO BE USED IN PLACE OF ITEMS BELOW): denies Physical Exam - General General Appearance: Alert, Oriented x3, Cooperative, Mild distress - Head Head exam: Normal inspection - Eye Eye exam: Normal appearance, PERRL, EOMI Pupils: Normal accommodation - ENT ENT exam: Normal exam, Mucous membranes moist, Normal external ear exam, Normal orophraynx Ear exam: Normal external inspection. negative: External canal tenderness Nasal Exam: Normal inspection. negative: Discharge, Sinus tenderness Mouth exam: Normal external inspection, Tongue normal Teeth exam: Normal inspection. negative: Dental caries Throat exam: Normal inspection. negative: Tonsillar erythema, Tonsillar exudate - Neck Neck exam: Normal inspection, Full ROM. negative: Tenderness - Respiratory Respiratory exam: Normal lung sounds bilaterally. negative: Respiratory distress - Cardiovascular Cardiovascular Exam: Regular rate, Normal rhythm, Normal heart sounds - GI/Abdominal GI/Abdominal exam: Soft, Normal bowel sounds, Tenderness - Rectal Rectal exam: Deferred - exam: Deferred - Extremities Extremities exam: Normal inspection, Full ROM, Normal capillary refill. negative: Tenderness - Back Back exam: Reports: Normal inspection, Full ROM. Denies: Muscle spasm, Rash noted, Tenderness - Neurological Neurological exam: Alert, CN II-XII intact, Normal gait, Oriented X3 - Psychiatric Psychiatric exam: Normal affect, Normal mood - Skin Skin exam: Dry, Intact, Normal color, Warm Course Vital Signs 11/21/18 00:18 Temperature 98.5 F Pulse Rate 85 Respiratory 20 Rate Blood Pressure 176/86 Pulse Ox 98 - Reevaluation(s) Reevaluation #1: 11/21/18 02:09 ct neg for obstruction or any other acute findings Medical Decision Making - Lab Data Result diagrams: 11/21/18 01:01 11/21/18 01:02 Lab Results 11/21/18 11/21/18 11/21/18 Range/Units 01:01 01:02 01:02 WBC 7.6 (4.2-12.2) K/uL RBC 5.07 (3.80-5.40) M/uL Hgb 10.6 L (11.6-16.0) gm/dl Hct 35.1 (35.0-47.0) % MCV 69.2 L (81-97) fl MCH 20.9 L (27-33) pg MCHC 30.2 L (32-36) g/dl RDW 20.4 H (11.5-14.5) % Plt Count 354 (130-400) K/uL MPV 10.3 (7.4-10.4) fl Gran % 50.2 (47-80) % Lymphocytes % 37.4 (16-45) % Monocytes % 8.0 (0-9) % Eosinophils % 4.0 (0-6) % Basophils % 0.4 (0-6) % Sodium 144 (136-145) mmol/L Potassium 3.8 (3.4-4.5) mmol/L Chloride 106 (98-107) mmol/L Carbon Dioxide 28.0 (22-29) mmol/L Anion Gap 10.0 (7-16) BUN 15 (6-20) mg/dL Creatinine 0.6 (0.5-0.9) mg/dL Estimated GFR > 60 mL/min Random Glucose 122 H (74-109) mg/dL Calcium 9.2 (8.6-10.0) mg/dL Total Bilirubin 0.20 (0.2-1.0) mg/dL AST 14 (10.0-35.0) U/L ALT 9 (<33) U/L Alkaline Phosphatase 81 (45-87) U/L Total Protein 7.2 (6.6-8.7) g/dL Albumin 3.8 L (4.0-5.0) g/dL Globulin 3.4 (1.4-4.8) gm/dL Albumin/Globulin Ratio 1.1 (1.1-1.8) Lipase 23 (13-60) U/L Urine Color Yellow Urine Appearance Clear Urine pH 5.5 (5.0-8.0) Ur Specific [place] >= 1.030 (1.002-1.030) Urine Protein Trace H (NEGATIVE) Urine Glucose (UA) Negative (NEGATIVE) Urine Ketones Negative (NEGATIVE) Urine Blood Negative (NEGATIVE) Urine Nitrite Negative (NEGATIVE) Urine Bilirubin Negative (NEGATIVE) Urine Urobilinogen 1.0 (0.20 - 1.00) E.U./dL Ur Leukocyte Esterase Negative (NEGATIVE) Disposition Disposition: Discharge Clinical Impression: Abdominal pain Qualifiers: Abdominal location: generalized Qualified Code(s): R10.84 - Generalized abdominal pain Disposition: Home, Self-Care Condition: (1) Good Instructions: Abdominal Pain (ED) Additional Instructions: follow up with family doctor. return sooner if worse. Forms: Patient Portal Access Quality - Quality Measures Quality Measures: N/A - Blood Pressure Screening Does Patient Have Any of the Following: No Blood Pressure Classification: Pre-Hypertensive BP Reading Systolic Measurement: 176 Diastolic Measurement: 86 Screening for High Blood Pressure: < Pre-Hypertensive BP, F/U Documented > [ G8950] Pre-Hypertensive Follow-up Interventions: Follow-up with rescreen every year.
--- NOTE | 2018-11-23 07:43 | CT SCAN REPORT ---
EXAM: CT SCAN OF THE ABDOMEN AND PELVIS WITHOUT CONTRAST HISTORY: MID TO UPPER ABDOMINAL PAIN FOR THE PAST TWO DAYS. MULTIPLE PREVIOUS ABDOMINAL SURGERIES. TECHNIQUE: Standard CT imaging of the abdomen and pelvis was performed without contrast. Comparison: 02/28/18. FINDINGS: The lung bases are clear. Coronary artery calcifications are present. The liver appears mildly enlarged, but stable. There are no focal hepatic abnormalities. The gallbladder is surgically absent. The biliary tree , pancreas, and adrenal glands are normal. There is a stable low density lesion within the spleen with minor peripheral calcification. 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 The spleen is mildly enlarged, but stable. There is a 2 mm nonobstructing stone at the lower pole of the right kidney. A 5 mm nonobstructing stone is present within the upper pole of the left kidney. There is no obstructing calculus or hydronephrosis. The aorta is normal in caliber. There is no retroperitoneal lymphadenopathy. The patient is status post gastric sleeve procedure. No complicating features are identified. Post surgical changes are present within the anterior abdominal wall consistent with previous hernia repair. The large and small bowel loops are normal in caliber. There is no obstruction or focal inflammatory process. There are post surgical changes within the distal colon. There is no pneumoperitoneum or ascites. The uterus is surgically absent. The urinary bladder appears normal. Post surgical changes are present within the subcutaneous fat of the anterior abdomen. There is generalized subcutaneous edema within the abdomen and pelvis. There are no acute osseous abnormalities. IMPRESSION: 1. NO ACUTE INTRAABDOMINAL PATHOLOGY. 2. NONOBSTRUCTING INTRARENAL CALCULI BILATERALLY. 3. STABLE HYPODENSE LESION WITHIN THE SPLEEN LIKELY REPRESENTING A HEMANGIOMA. 4. ADDITIONAL STABLE CHRONIC AND POST SURGICAL CHANGES ABOVE. JOB NUMBER: [id number] [facility]
== END 2018-11-21 02:34 | disposition home or self-care (01) ==
LOC: ER 00:07
DX: R10.84 Generalized abdominal pain (principal); R11.11 Vomiting without nausea; Z87.891 Personal history of nicotine dependence; Z98.890 Other specified postprocedural states
CPT/HCPCS: 99284 ×2; 96376; 96374; 96375; 83690; 85025; 80053; 81003; 74176; J2405; J1170; J7030